=== PATIENT | female | born 1940 | race Caucasian/White ===

== ENCOUNTER → 2023-09-05 15:58 | Outpatient (REF) | payer MEDICARE, OTHER, SELFPAY | LOC: RAD 15:58 | PROVIDERS: ATTENDING PHYSICIAN Family Medicine | DX: S09.90XA Unspecified injury of head, initial encounter (principal); W19.XXXA Unspecified fall, initial encounter; R42 Dizziness and giddiness; R11.0 Nausea; Z79.01 Long term (current) use of anticoagulants; M54.50 Low back pain, unspecified | CPT/HCPCS: 70450; 72110 ==

== ENCOUNTER → 2023-12-29 08:48 | Outpatient (REF) | payer MEDICARE, OTHER, SELFPAY | LOC: RAD 08:48 | PROVIDERS: ATTENDING PHYSICIAN Obstetrics & Gynecology; FAMILY PHYSICIAN Family Medicine | DX: Z78.0 Asymptomatic menopausal state (principal) | CPT/HCPCS: 77080 ==

== ENCOUNTER → 2024-02-05 13:44 | Outpatient (REF) | payer MEDICARE, OTHER, SELFPAY | LOC: HWRAD 13:44 | PROVIDERS: ATTENDING PHYSICIAN Obstetrics & Gynecology; FAMILY PHYSICIAN Family Medicine | DX: N95.0 Postmenopausal bleeding (principal) | CPT/HCPCS: 76830; 76856 ==

== ENCOUNTER → 2024-10-04 11:02 | Outpatient (REF) | payer MEDICARE, OTHER, SELFPAY ==
[2024-10-04 17:39] LABS: Urine Albumin 1+ (Neg - Trace); Urine Bilirubin 3+ (Negative); Urine Character Clear (Clear); Urine Glucose Negative (Negative); Urine Ketone Negative (Negative); Urine Leukocyte 1+ (Negative); Urine Nitrite Positive (Negative); Urine Occult Blood Negative (Negative); Urine Urobilinogen 4+ (Neg - 1+)
[2024-10-04 17:42] LABS: Urine Color Orange
[2024-10-04 17:48] LABS: Urine Squamous Cell 0-2 /LPF (Few)
[2024-10-04 17:49] LABS: Urine Bacteria Moderate (Negative); Urine Red Blood Cell 0-2 /HPF (0-2)
== END ==
LOC: CLAB 11:02
PROVIDERS: ATTENDING PHYSICIAN Physician Assistant Medical
DX: N30.00 Acute cystitis without hematuria (principal)
CPT/HCPCS: 81003; 81015; 87086

== ENCOUNTER → 2024-10-15 14:10 | Outpatient (REF) | payer MEDICARE, OTHER, SELFPAY | LOC: HWRAD 14:10 | PROVIDERS: ATTENDING PHYSICIAN Family Medicine | DX: M54.50 Low back pain, unspecified (principal) | CPT/HCPCS: 72110 ==

== ENCOUNTER 2024-11-03 07:44 | Emergency (ER) | payer MEDICARE, OTHER, SELFPAY ==
[2024-11-03 07:51] VITALS: BP 174/90
--- NOTE | 2024-11-03 08:14 | EDRN ---
Pt attempting urine spec at this time.
[2024-11-03 08:27] VITALS: BP 165/79
[2024-11-03 08:28] VITALS: BMI 32.0
--- NOTE | 2024-11-03 08:35 | ED.GENMED ---
History of Present Illness
<Jacqueline Jimenez PA-C - Last Filed: 11/03/24 15:07>
General
Chief Complaint: Generalized Pain
Source: patient
Exam Limitations: none
Time Seen by Provider: 11/03/24 08:05
Nursing documentation reviewed up to this point in time: agreed with
History of Present Illness
History of Present Illness:
PT IS A 84 Y/O F with h/o fibromyalgia, PAF on eliquis, neuropathy
rubor legs chroniclaly
here with acute on chronic worsening b/l lowre extermity pain the past 1 week
she also has noticed more significant edema in the legs b/l for about 5 days
she saw pain mangaement an dwas given vicodin which isn't helping
she chornically has rednes in the feet hwich is usually worse as the day goes on but seems to be more red in the morning the past 2 dyas
and she has noticed some blisters forming on her anterior lower
Past History
<Jacqueline Jimenez PA-C - Last Filed: 11/03/24 15:07>
Past History
ED Past Medical History: Arrthythmia (Atrial fibrillation) and Other (Torn rotator cuff)
Social History
Tobacco: Non-smoker
Alcohol: Occasional
Personal:
Living: with family
Family History
Family History: Negative Diabetes, Hypertension or CAD
Course
<Jacqueline Jimenez PA-C - Last Filed: 11/03/24 15:07>
Orders/Labs/Results
Orders:
Orders
11/03/24 08:19
IV Insert/Care/Rem.- Treatment PRN
11/03/24 08:30
Electrocardiogram (*1) Urgent
Reason for Study: Abdominal Pain
CT Abd/Pel (IV only)-DH only Urgent
Comment:
Reason For Exam: lower abd pain, moderate to severe bl LE edema;
EKG- Treatment ONCE
Venous Doppler Lwr Ext Bilat [US Periph Venous LOWER Ext Silviano] Urgent
Comment:
Reason For Exam: b/l LE edema
11/03/24 08:35
Ketorolac [Toradol] 15 mg IV NOW STA
11/03/24 08:40
CPK [Creatine Phosphokinase] Urgent
Complete Blood Count/With Diff Urgent
Comprehensive Metabolic Panel Urgent
Lipase Urgent
NT-proBNP Urgent
Urinalysis Reflex To Culture Urgent
Date Specimen was Collected: 11/03/24
Time Specimen was Collected: 08:20
Urine Microscopic Reflex Cult Urgent
Urine Culture Urgent
GIOVANNI Source: U
Specimen Description:
Date Specimen was Collected: 11/03/24
Time Specimen was Collected: 08:20
11/03/24 08:50
Lactic Acid Urgent
11/03/24 09:39
Morphine Sulfate 2 mg IV NOW STA
Abnormal Lab Results
11/03/24
08:40
RBC 3.44 L 10^6/uL
(4.20-5.40)
Hgb 10.4 L g/dL
(12.0-16.0)
Hct 30.8 L %
(37.0-47.0)
Absolute Lymphs (auto) 1.0 L 10^3/uL
(1.2-3.4)
Lymphocytes % 14.5 L %
(20.5-51.1)
BUN 26 H mg/dl
(7-17)
Creatinine 0.5 L mg/dL
(0.6-1.0)
Alkaline Phosphatase 177 H U/L
(38-126)
Ur Occult Blood Reflex 1+ A
(Negative)
Leukocyte Esterase Rfl 2+ A
(Negative)
Urine RBC 16-20 A /HPF
(0-2)
Urine Bacteria (Reflex) Moderate A
(Negative)
11/03/24 08:40
11/03/24 08:40
Vital Signs
Initial and Last Documented VS:
Initial Vital Signs
Temp Pulse Resp BP Pulse Ox
36.8 C 80 16 174/90 98
11/03/24 07:51 11/03/24 07:51 11/03/24 07:51 11/03/24 07:51 11/03/24 07:51
Last Documented Vital Signs
Temp Pulse Resp BP Pulse Ox
36.8 C 77 22 156/94 95
11/03/24 07:51 11/03/24 12:00 11/03/24 12:00 11/03/24 09:46 11/03/24 11:15
<Belkys Weiss MD - Last Filed: 11/03/24 12:03>
Orders/Labs/Results
Orders:
Orders
11/03/24 08:19
IV Insert/Care/Rem.- Treatment PRN
11/03/24 08:30
Electrocardiogram (*1) Urgent
Reason for Study: Abdominal Pain
CT Abd/Pel (IV only)-DH only Urgent
Comment:
Reason For Exam: lower abd pain, moderate to severe bl LE edema;
EKG- Treatment ONCE
Venous Doppler Lwr Ext Bilat [US Periph Venous LOWER Ext Silviano] Urgent
Comment:
Reason For Exam: b/l LE edema
11/03/24 08:35
Ketorolac [Toradol] 15 mg IV NOW STA
11/03/24 08:40
CPK [Creatine Phosphokinase] Urgent
Complete Blood Count/With Diff Urgent
Comprehensive Metabolic Panel Urgent
Lipase Urgent
NT-proBNP Urgent
Urinalysis Reflex To Culture Urgent
Date Specimen was Collected: 11/03/24
Time Specimen was Collected: 08:20
Urine Microscopic Reflex Cult Urgent
Urine Culture Urgent
GIOVANNI Source: U
Specimen Description:
Date Specimen was Collected: 11/03/24
Time Specimen was Collected: 08:20
11/03/24 08:50
Lactic Acid Urgent
11/03/24 09:39
Morphine Sulfate 2 mg IV NOW STA
Abnormal Lab Results
11/03/24
08:40
RBC 3.44 L 10^6/uL
(4.20-5.40)
Hgb 10.4 L g/dL
(12.0-16.0)
Hct 30.8 L %
(37.0-47.0)
Absolute Lymphs (auto) 1.0 L 10^3/uL
(1.2-3.4)
Lymphocytes % 14.5 L %
(20.5-51.1)
BUN 26 H mg/dl
(7-17)
Creatinine 0.5 L mg/dL
(0.6-1.0)
Alkaline Phosphatase 177 H U/L
(38-126)
Ur Occult Blood Reflex 1+ A
(Negative)
Leukocyte Esterase Rfl 2+ A
(Negative)
Urine RBC 16-20 A /HPF
(0-2)
Urine Bacteria (Reflex) Moderate A
(Negative)
11/03/24 08:40
11/03/24 08:40
Vital Signs
Initial and Last Documented VS:
Initial Vital Signs
Temp Pulse Resp BP Pulse Ox
36.8 C 80 16 174/90 98
11/03/24 07:51 11/03/24 07:51 11/03/24 07:51 11/03/24 07:51 11/03/24 07:51
Last Documented Vital Signs
Temp Pulse Resp BP Pulse Ox
36.8 C 77 22 156/94 95
11/03/24 07:51 11/03/24 12:00 11/03/24 12:00 11/03/24 09:46 11/03/24 11:15
ED Attending Note
<Jacqueline Jimenez PA-C - Last Filed: 11/03/24 15:07>
-
Portions of this chart may have been created with voice recognition software.� Occasional wrong word or��sound alike� substitutions may have occurred due to the inherent limitations of voice recognition software.
<Belkys Weiss MD - Last Filed: 11/03/24 12:03>
ED Attending Note
Patient seen and examined by attending physician: Yes
I performed the substantive portion of visit, reviewed & personally made and approve the management plan that is documented in note by myself or ANDIE.: Yes
ED Attending Note:
I have seen and evaluated the patient with a [id number] encounter. I have spoken to the [PA] and involved in the medical history, the physical exam, medical decision making.
Evaluation and management service: agree unless noted differently below.
Results interpretation: agree unless noted differently below.
Patient is a 84-year-old woman presenting to the emergency department with acute on chronic leg pain. She states that she has been diagnosed with neuropathy and actually has a nerve ablation scheduled for tomorrow. She states that the pain has
been more severe today so she came in. Her primary care doctor did prescribe her Vicodin which has not helped. She is on tramadol. She states that normally helps but did not help today. She was on gabapentin but unfortunately had to stop it
secondary to 2 side effects. She also states that her legs are usually red and swollen. She does state that they could be related to her veins. She denies any fevers chills. No drainage. No numbness tingling. No weakness. She has noticed some
blisters to her lower extremity. She also stated she is having vague abdominal pain as well. No diarrhea. No nausea no vomiting.
GENERAL: in no acute distress
HEENT: normocephalic, extraocular movements intact, moist oral mucosa
NECK: normal inspection
RESPIRATORY: no respiratory distress, clear to auscultation bilaterally
CARDIOVASCULAR: regular rate and rhythm
ABDOMEN/: soft, non-distended, non-tender to palpation, no rebound or guarding
EXTREMITIES: Bilateral lower extremity with edema, left lower extremity with mild erythema to the foot and lower leg which patient states that is at baseline. Small closed blister to the right lower anterior weston. No skin sloughing. No crepitus.
Palpable DP pulses bilaterally, normal cap refill, normal sensation
NEUROLOGIC: awake and alert, moves all extremities
SKIN: warm
Patient is a 84-year-old woman presenting to the emergency department with acute on chronic leg pain. Vitals are notable for being hypertensive and exam does show bilateral lower extremity swelling with mild redness to the left lower extremity. We
did rule out DVT or compressive clot in the abdomen. She does have palpable distal pulses so not consistent with acute limb ischemia. The leg does not appear infected. I did have a lengthy discussion with patient and offered repeating her urine
sample as she was complaining of suprapubic pressure and the initial urine was contaminated. However patient declines as this does not feel like her prior bladder infections. I did offer patient admission for further workup and evaluation but
unfortunately cannot give a magic cure for the burning pain that she is having in her legs. Patient then opted for discharge as she does have a procedure tomorrow that she wants completed. We did discuss with patient's primary care physician who
is in agreement with discharge. Strict return precautions given.
Discharge Plan
Departure
Patient Disposition: Home (Routine Discharge)
Date of Disposition: 11/03/24
Time of Disposition: 11:54
Patient with high blood pressure during this ER visit?: No
Condition: Fair
Discharge Problem:
Chronic pain
Instructions: Chronic Pain (DC)
Prescriptions:
No Action
cholecalciferol (vitamin D3) 1,000 UNITS tablet
1,000 units PO DAILY
Eliquis 5 MG tablet
5 mg PO BID Qty: 30 0RF
Patient Comments:
told to stop 2 days prior
acetaminophen [Tylenol Extra Strength] 500 MG tablet
500 - 1,000 mg PO PRN PRN (Reason: PAIN)
lidocaine [Lidocaine Pain Relief] 4 % Adhesive Patch,Medicated
1 patch TOPICAL HS
cyanocobalamin (vitamin B-12) 1,000 mcg Tablet
1,000 mcg PO DAILY
metoprolol succinate 25 mg Tablet Extended Release 24 Hr
25 mg PO PRN PRN (Reason: PAF)
Rx Instructions:
one/day
losartan 50 mg Tablet
50 mg PO BID
olopatadine [Pataday Twice Daily Relief] 0.1 % Drops
1 drp BOTH EYES DAILY
loteprednol etabonate [Lotemax] 0.5 % Drops,Suspension
1 drp BOTH EYES DAILY
Hydrocortisone Ointment
1 dose topical PRN PRN (Reason: itch)
Traumeel Cream
1 dose topical PRN PRN (Reason: pain)
Estring 2 mg (7.5 mcg /24 hour) Ring
1 vag ring VAGINAL [id number]
Patient Comments:
in place per patient.
albuterol sulfate
1 puff inhalation .PRN Q4H PRN (Reason: SOB)
calcium carbonate 1,250 MG
1,250 mg PO PRN PRN (Reason: antacid)
Thera Tears
BOTH EYES Q6H
lidocaine 3 % Cream
See Rx Instructions .ROUTE .COMPLEX PRN (Reason: pain)
Rx Instructions:
1 applic topically as needed to bilateral feet.
tramadol 50 mg Tablet
50 mg PO Q6HPRN PRN (Reason: moderate to severe pain) Qty: 14 0RF
tramadol 50 mg tablet
50 mg PO Q6HPRN PRN (Reason: severe pain/breakthrough pain) Qty: 14 0RF
Referrals:
Patria Enriquez MD [Family Provider] - Follow up in 2-3 days
Activity Restrictions/Additional Instructions:
YOU CAN FOLLOW UP WITH DR. ENRIQUEZ THIS WEEK, I SPOKE WITH HER ABOUT YOUR TESTING AND WE DID NOT FIND ANY EMERGENCIES
PLEASE CONTINUE YOUR PAIN MEDICATION REGIMEN
RETURN FOR WORSENING SYMPTOMS LIKE FEVER, CHILLS, WORSENING RASH, TROUBLE WALKING
OTHERWISE PLEASE SEE YOUR DOCTOR
Interventions
Interventions:
*Risk Screen - Suicide Last Done: 11/03/24 07:51
*General Assessment Last Done: 11/03/24 08:28
*Neglect/Abuse Screening Last Done: 11/03/24 07:51
*ED- Fall Risk Assessment Last Done: 11/03/24 08:28
*ED COVID-19 Vaccine History Last Done: 11/03/24 08:28
*Nursing Disposition Last Done: 11/03/24 12:15
Discharge Date and Time
Discharge Date/Time: 11/03/24 12:15
Print Language: SAMMARINESE
[2024-11-03 08:51] LABS: Urine Albumin Negative (Neg - Trace); Urine Bilirubin Negative (Negative); Urine Character Clear (Clear); Urine Color Yellow; Urine Glucose Negative (Negative); Urine Ketone Negative (Negative); Urine Leukocyte 2+ (Negative); Urine Nitrite Negative (Negative); Urine Occult Blood 1+ (Negative); Urine Urobilinogen Negative (Neg - 1+); Urine pH 6.5 (5.0-9.0)
[2024-11-03 08:54] LABS: % Basophils 0.3 % (0-2); % Immature Granulocytes 0.4 % (0-0.5); % Lymphocytes 14.5 % (20.5-51.1); % Monocytes 8.8 % (1.7-9.3); Absolute Eosinophils 0.1 10^3/uL (0-0.7); Absolute Monocytes 0.6 10^3/uL (0.1-0.6); Absolute Neutrophils 5.2 10^3/uL (1.4-6.5); Hematocrit 30.8 % (37.0-47.0); Hemoglobin 10.4 g/dL (12.0-16.0); Mean Corp Hgb Conc. 33.8 g/dL (33.0-37.0); Mean Corpuscular Hgb 30.2 pg (27.0-31.0); Mean Corpuscular Volume 89.5 fL (81.0-99.0); Mean Platelet Volume 10.4 fL (7.4-10.4); Nucleated Red Blood Cells % 0 %; Platelet Count 226 10^3/uL (130-400); Red Blood Cell Count 3.44 10^6/uL (4.20-5.40); Red Cell Dist. Width 13.9 % (11.5-14.5); White Blood Cell Count 6.9 10^3/uL (4.8-10.8)
[2024-11-03 09:00] VITALS: BP 160/86
[2024-11-03 09:02] LABS: AST (SGOT) 33 U/L (14-36); Albumin 3.9 g/dl (3.5-5.0); Alkaline Phosphatase 177 U/L (38-126); Blood Urea Nitrogen 26 mg/dl (7-17); Calcium 9.9 mg/dl (8.4-10.2); Carbon Dioxide 26 mmol/L (22-30); Chloride 106 mmol/L (98-107); Creatine Phosphokinase 128 U/L (30-135); Estimated Creatinine Clearance 68 ml/min; Glucose 94 mg/dl (70-99); Lipase 118 U/L (23-300); Potassium 4.2 mmol/L (3.5-5.1); Sodium 138 mmol/L (135-145); Total Bilirubin 0.5 mg/dl (0.2-1.3); Total Protein 6.3 g/dl (6.3-8.2); eGFR > 60.00
[2024-11-03 09:03] LABS: ALT (SGPT) 33 U/L (0-35)
[2024-11-03] MEDS: TORADOL 15 MG IV (09:05)
[2024-11-03 09:10] LABS: Lactic Acid 0.7 mmol/L (0.7-2.0)
[2024-11-03 09:11] LABS: NT-proBNP 559 pg/ml
[2024-11-03] MEDS: MORPHINE SULFATE 2 MG IV (09:44)
[2024-11-03 09:46] VITALS: BP 156/94
[2024-11-03 09:48] LABS: Urine Squamous Cell 26-30 /LPF (Few); Urine Urothelial Cell 0-2 /LPF (FEW)
[2024-11-03 09:49] LABS: Urine Bacteria Moderate (Negative); Urine Red Blood Cell 16-20 /HPF (0-2)
--- NOTE | 2024-11-03 10:58 | EDRN ---
Spouse just came out of pt's room and said to this RN that pt is 'writhing in pain'. pt just returned from US. Honorio PHAM was inrformed and in room to check on pt.
--- NOTE | 2024-11-03 11:04 | EDRN ---
Ru ED PCT in room assisting pt to get up to ambulate to BR at this time.
--- NOTE | 2024-11-03 11:10 | EDRN ---
Pt was in great pain just now and declined a purewyck, used walker and ambulated to BR w/out difficulty.
--- NOTE | 2024-11-03 11:11 | EDRN ---
Dr. Weiss now in room speaking w/ pt at this time.
--- NOTE | 2024-11-03 11:24 | EDRN ---
Pt's spouse just exited pt's room and informed this RN that pt wishes to be discharged home as she has an ablation scheduled tomorrow w/ her pain specialist.
--- NOTE | 2024-11-03 11:25 | EDRN ---
This RN TT'd Honorio Jimenez w/ what spouse said to this RN.
--- NOTE | 2024-11-03 11:49 | EDRN ---
Honorio PHAM in room w/ pt at this time.
== END 2024-11-03 12:15 | disposition home or self-care (01) ==
LOC: EMR 07:44
PROVIDERS: Physician Assistant; EMERGENCY PHYSICIAN Student in an Organized Health Care Education/Training Program; FAMILY PHYSICIAN Family Medicine
DX: M79.605 Pain in left leg (principal); M79.604 Pain in right leg; R60.0 Localized edema; R10.30 Lower abdominal pain, unspecified; L53.9 Erythematous condition, unspecified; M79.7 Fibromyalgia; I48.0 Paroxysmal atrial fibrillation; G89.29 Other chronic pain; G62.9 Polyneuropathy, unspecified; R73.03 Prediabetes; K21.9 Gastro-esophageal reflux disease without esophagitis; K44.9 Diaphragmatic hernia without obstruction or gangrene; M19.90 Unspecified osteoarthritis, unspecified site; Z79.01 Long term (current) use of anticoagulants; Z85.828 Personal history of other malignant neoplasm of skin; Z87.891 Personal history of nicotine dependence; Z88.1 Allergy status to other antibiotic agents; Z88.8 Allergy status to other drugs, medicaments and biological substances
CPT/HCPCS: 99284; 96375; 96374; 74177; 80053; 81003; 81015; 82550; 83605; 83690; 83880; 85025; 87086; 93005; 93970; Q9967

== ENCOUNTER 2024-11-21 13:19 | Inpatient (IN) | payer MEDICARE, OTHER, SELFPAY ==
[2024-11-20 15:10] VITALS: BMI 32.1
[2024-11-20 15:12] VITALS: BP 169/67
--- NOTE | 2024-11-20 16:03 | ED.SKININJ ---
HPI-Injury
<Maria E Mccloud NP - Last Filed: 11/20/24 20:38>
General
Chief Complaint: Skin Problem
Source: patient
Exam Limitations: none
Time Seen by Provider: 11/20/24 15:50
Nursing documentation reviewed up to this point in time: agreed with
History of Present Illness-Injury
Is this injury a work related problem?: No
Is pt an associate of [facility]/[place]?: No
Initial Injury comments:
Patient to ED wt complaint of pain redness swelling and drainage BLE. Keri states feet are typically red but the erythema swelling and weeping of legs is new. She was evaluated by PCP and then sent to ED. Denies fever/chills. Denies
SOB,CP/pressure.
Past History
<Maria E Mccloud NP - Last Filed: 11/20/24 20:38>
Past History
ED Past Medical History: Arrthythmia (Atrial fibrillation) and Other (Torn rotator cuff)
Social History
Tobacco: Non-smoker
Alcohol: Occasional
Personal:
Living: with family
Family History
Family History: Negative Diabetes, Hypertension or CAD
Review of Systems
<Maria E Mccloud NP - Last Filed: 11/20/24 20:38>
Review of Systems
Allergies reviewed?: Yes
All Other Systems: ROS reviewed and negative except as documented in HPI and ROS
Constitutional: Reports no symptoms
EENT: Reports no symptoms
Respiratory: Reports no symptoms
Cardiac: Reports no symptoms
ABD/GI: Reports no symptoms
: Reports no symptoms
Musculoskeletal: Reports other (BLE pain knees to toes)
Skin: Reports other (BLE erythema, swelling and pain from knee to toes)
Neurological: Reports no symptoms
Psychiatric: Reports no symptoms
Phy Exam
<Maria E Mccloud ACADEMIC SUPPORT DIRECTOR - Last Filed: 11/20/24 20:38>
General Physical Exam
General Presentation: moderate distress
General age: appears stated age
General Skin: warm
General Habitus: normal
General Mental: alert
Cardiovascular Exam
Cardiovascular Exam: regular rate/rhythm
Pulmonary Exam
Pulmonary Exam: lungs clear and no respiratory distress
Gastrointestinal Exam
Gastrointestinal Exam: normal bowel sounds, non tender and soft
Musculoskeletal Exam
Musculoskeletal Exam: neuro vasc intact and other (BLE swelling, erythema, pain)
Skin Exam
Skin Exam: other (erythema and swelling BLE knees to ties. Both legs draining clear fluid)
Psychiatric Exam
Psychiatric Exam: normal mood/affect
Course
<Maria E Mccloud ACADEMIC SUPPORT DIRECTOR - Last Filed: 11/20/24 20:38>
Orders/Labs/Results
Orders:
Orders
11/20/24 16:01
US Periph Venous LOWER Ext Silviano Urgent
Comment:
Reason For Exam: erythema, swelling
11/20/24 16:05
HYDROmorphone [Dilaudid] 0.25 mg IV NOW STA
Ondansetron Injectable [Zofran] 4 mg IV NOW STA
11/20/24 16:22
Complete Blood Count/With Diff Urgent
Comprehensive Metabolic Panel Urgent
NT-proBNP Urgent
11/20/24 16:38
Lactic Acid Urgent
Blood Culture Urgent
GIOVANNI Source: Blood/Venous
Specimen Description:
11/20/24 18:58
Furosemide [Lasix] 40 mg IV NOW STA
11/20/24 19:04
HYDROmorphone [Dilaudid] 0.25 mg .ROUTE .STK-MED ONE
11/20/24 19:10
HYDROmorphone [Dilaudid] 0.25 mg IV NOW STA
11/20/24 19:42
Vancomycin [Vancocin] 2,000 mg 0.9% Sodium Chloride 500 ml [Nss] 500 ml IV NOW
11/20/24 20:12
HYDROmorphone [Dilaudid] 0.25 mg IV NOW STA
11/20/24 20:16
Admit/Transfer Patient As Directed
Co-Sign Provider:
Level of Care: Observation services
Assign to:: Medical/Surgical
Physician / Group: Leanne Montemayor
Diagnosis: cellulitis vs. overload vs. lymphedema
PRN Pain Medication Management As Directed
May give lesser potent ordered pain med per pt: Yes
preference::
Protocol:: Medication orders for pain may be administered in a
manner that supports deferring to patient preference
when the pt is:
- Requesting an ordered lesser potent pain medication.
Least to most potent pain medications are defined
as: acetaminophen < NSAID < tramadol < opioids
(morphine, oxycodone, hydromorphone).
- Requesting a lesser dose of the same medication IF
ORDERED.
- Requesting a less intrusive route of administration
if both routes are prescribed by the provider (PO <
IV).
11/20/24 20:17
Code Status As Directed
Resuscitation Status: Full Code
Abnormal Lab Results
11/20/24 11/20/24
16:22 16:38
RBC 3.77 L 10^6/uL
(4.20-5.40)
Hgb 11.3 L g/dL
(12.0-16.0)
Hct 33.2 L %
(37.0-47.0)
MPV 10.5 H fL
(7.4-10.4)
Absolute Lymphs (auto) 0.8 L 10^3/uL
(1.2-3.4)
Neutrophils % 79.1 H %
(42.2-75.2)
Lymphocytes % 12.6 L %
(20.5-51.1)
BUN 35 H mg/dl
(7-17)
Creatinine 0.5 L mg/dL
(0.6-1.0)
Lactic Acid 0.6 L mmol/L
(0.7-2.0)
Alkaline Phosphatase 148 H U/L
(38-126)
11/20/24 16:22
11/20/24 16:22
Vital Signs
Initial and Last Documented VS:
Initial Vital Signs
Temp Pulse Resp BP Pulse Ox
98.2 F 86 20 169/67 95
11/20/24 15:12 11/20/24 15:12 11/20/24 15:12 11/20/24 15:12 11/20/24 15:12
Last Documented Vital Signs
Temp Pulse Resp BP Pulse Ox
98.2 F 79 13 165/113 98
11/20/24 15:12 11/20/24 19:11 11/20/24 18:00 11/20/24 19:11 11/20/24 18:00
<Giovanni Allen, DO - Last Filed: 11/20/24 18:50>
Orders/Labs/Results
Orders:
Orders
11/20/24 16:01
US Periph Venous LOWER Ext Silviano Urgent
Comment:
Reason For Exam: erythema, swelling
11/20/24 16:05
HYDROmorphone [Dilaudid] 0.25 mg IV NOW STA
Ondansetron Injectable [Zofran] 4 mg IV NOW STA
11/20/24 16:22
Complete Blood Count/With Diff Urgent
Comprehensive Metabolic Panel Urgent
NT-proBNP Urgent
11/20/24 16:38
Lactic Acid Urgent
Blood Culture Urgent
GIOVANNI Source: Blood/Venous
Specimen Description:
11/20/24 18:58
Furosemide [Lasix] 40 mg IV NOW STA
11/20/24 19:04
HYDROmorphone [Dilaudid] 0.25 mg .ROUTE .STK-MED ONE
11/20/24 19:10
HYDROmorphone [Dilaudid] 0.25 mg IV NOW STA
11/20/24 19:42
Vancomycin [Vancocin] 2,000 mg 0.9% Sodium Chloride 500 ml [Nss] 500 ml IV NOW
11/20/24 20:12
HYDROmorphone [Dilaudid] 0.25 mg IV NOW STA
11/20/24 20:16
Admit/Transfer Patient As Directed
Co-Sign Provider:
Level of Care: Observation services
Assign to:: Medical/Surgical
Physician / Group: Leanne Montemayor
Diagnosis: cellulitis vs. overload vs. lymphedema
PRN Pain Medication Management As Directed
May give lesser potent ordered pain med per pt: Yes
preference::
Protocol:: Medication orders for pain may be administered in a
manner that supports deferring to patient preference
when the pt is:
- Requesting an ordered lesser potent pain medication.
Least to most potent pain medications are defined
as: acetaminophen < NSAID < tramadol < opioids
(morphine, oxycodone, hydromorphone).
- Requesting a lesser dose of the same medication IF
ORDERED.
- Requesting a less intrusive route of administration
if both routes are prescribed by the provider (PO <
IV).
11/20/24 20:17
Code Status As Directed
Resuscitation Status: Full Code
Abnormal Lab Results
11/20/24 11/20/24
16:22 16:38
RBC 3.77 L 10^6/uL
(4.20-5.40)
Hgb 11.3 L g/dL
(12.0-16.0)
Hct 33.2 L %
(37.0-47.0)
MPV 10.5 H fL
(7.4-10.4)
Absolute Lymphs (auto) 0.8 L 10^3/uL
(1.2-3.4)
Neutrophils % 79.1 H %
(42.2-75.2)
Lymphocytes % 12.6 L %
(20.5-51.1)
BUN 35 H mg/dl
(7-17)
Creatinine 0.5 L mg/dL
(0.6-1.0)
Lactic Acid 0.6 L mmol/L
(0.7-2.0)
Alkaline Phosphatase 148 H U/L
(38-126)
11/20/24 16:22
11/20/24 16:22
Vital Signs
Initial and Last Documented VS:
Initial Vital Signs
Temp Pulse Resp BP Pulse Ox
98.2 F 86 20 169/67 95
11/20/24 15:12 11/20/24 15:12 11/20/24 15:12 11/20/24 15:12 11/20/24 15:12
Last Documented Vital Signs
Temp Pulse Resp BP Pulse Ox
98.2 F 79 13 165/113 98
11/20/24 15:12 11/20/24 19:11 11/20/24 18:00 11/20/24 19:11 11/20/24 18:00
<Maria E Mccloud NP - Last Filed: 11/20/24 20:38>
*Radiology
Radiology exam reviewed: radiology read reviewed
*Pulse Oximetry
Patient hypoxic: no
*Critical Care Note
Total Time (30-74mins, 75-104mins- exclusive of procedures): Not Applicable
<Maria E Mccloud ACADEMIC SUPPORT DIRECTOR - Last Filed: 11/20/24 20:38>
Update Note
Update Note:
patient to ED with complaint of BLE swelling, redness, pain. Bilateral legs are now weeping. SHe was seen today by PCP and sent to ED. Difficulty ambulating due to pain and swelling. SHe remains afebrile. Labs reviewed. WBC and lactic both
normal. BNP normal. US neg for DVT. Case discussed with Dr. Allen who also evaluated this patient. Will need to admit due to level of pain and inablilty to safely ambulate. Cellulitis vs volume overload. Given dose of lasix and Vancomycin in
ED. WIll admit to hospitalist service.
ED Attending Note
<Maria E Mccloud NP - Last Filed: 11/20/24 20:38>
-
Portions of this chart may have been created with voice recognition software.� Occasional wrong word or��sound alike� substitutions may have occurred due to the inherent limitations of voice recognition software.
<Giovanni Allen, - Last Filed: 11/20/24 18:50>
ED Attending Note
Patient seen and examined by attending physician: Yes
I performed the substantive portion of visit, reviewed & personally made and approve the management plan that is documented in note by myself or ANDIE.: Yes
ED Attending Note:
84-year-old female presents with lower extremity swelling despite outpatient diuresis. Now unable to walk due to severe pain. She is quite red left greater than right up to her knees with blistering noted to the right lower extremity. Question
cellulitis versus just related to lower extremity edema. For now cover with Ancef and admit. Continue diuresis
Discharge Plan
Departure
Patient Disposition: Admit
Date of Disposition: 11/20/24
Time of Disposition: 19:02
Presentation/result/management discussed w/ accepting MD/DO: Hospitalist
Patient with high blood pressure during this ER visit?: No
Condition: Fair
Covid-19: Not Applicable
Discharge Problem:
Bilateral cellulitis of lower leg, Leg edema
Prescriptions:
No Action
cholecalciferol (vitamin D3) 1,000 UNITS tablet
1,000 units PO DAILY
Eliquis 5 MG tablet
5 mg PO BID Qty: 30 0RF
Patient Comments:
told to stop 2 days prior
acetaminophen [Tylenol Extra Strength] 500 MG tablet
500 - 1,000 mg PO PRN PRN (Reason: PAIN)
lidocaine [Lidocaine Pain Relief] 4 % Adhesive Patch,Medicated
1 patch TOPICAL HS
cyanocobalamin (vitamin B-12) 1,000 mcg Tablet
1,000 mcg PO DAILY
metoprolol succinate 25 mg Tablet Extended Release 24 Hr
25 mg PO PRN PRN (Reason: PAF)
Rx Instructions:
one/day
losartan 50 mg Tablet
50 mg PO BID
olopatadine [Pataday Twice Daily Relief] 0.1 % Drops
1 drp BOTH EYES DAILY
loteprednol etabonate [Lotemax] 0.5 % Drops,Suspension
1 drp BOTH EYES DAILY
Hydrocortisone Ointment
1 dose topical PRN PRN (Reason: itch)
Traumeel Cream
1 dose topical PRN PRN (Reason: pain)
Estring 2 mg (7.5 mcg /24 hour) Ring
1 vag ring VAGINAL [id number]
Patient Comments:
in place per patient.
albuterol sulfate
1 puff inhalation .PRN Q4H PRN (Reason: SOB)
calcium carbonate 1,250 MG
1,000 mg PO PRN PRN (Reason: antacid)
Thera Tears
BOTH EYES Q6H
lidocaine 3 % Cream
See Rx Instructions .ROUTE .COMPLEX PRN (Reason: pain)
Rx Instructions:
1 applic topically as needed to bilateral feet.
tramadol 50 mg Tablet
50 mg PO Q6HPRN PRN (Reason: moderate to severe pain) Qty: 14 0RF
tramadol 50 mg tablet
50 mg PO Q6HPRN PRN (Reason: severe pain/breakthrough pain) Qty: 14 0RF
Referrals:
Patria Huynh MD [Family Provider] -
Interventions
Interventions:
*Risk Screen - Suicide Last Done: 11/20/24 16:41
*General Assessment Last Done: 11/20/24 15:12
*Neglect/Abuse Screening Last Done: 11/20/24 16:38
*ED COVID-19 Vaccine History Last Done: 11/20/24 16:38
Discharge Date and Time
Print Language: FAROESE
[2024-11-20 16:33] LABS: % Basophils 0.2 % (0-2); % Eosinophils 0.6 % (0-6); % Immature Granulocytes 0.3 % (0-0.5); % Lymphocytes 12.6 % (20.5-51.1); % Monocytes 7.2 % (1.7-9.3); % Neutrophils 79.1 % (42.2-75.2); Absolute Lymphocytes 0.8 10^3/uL (1.2-3.4); Absolute Monocytes 0.5 10^3/uL (0.1-0.6); Hematocrit 33.2 % (37.0-47.0); Hemoglobin 11.3 g/dL (12.0-16.0); Mean Corpuscular Volume 88.1 fL (81.0-99.0); Mean Platelet Volume 10.5 fL (7.4-10.4); Nucleated Red Blood Cells % 0 %; Platelet Count 199 10^3/uL (130-400); Red Blood Cell Count 3.77 10^6/uL (4.20-5.40); Red Cell Dist. Width 14.2 % (11.5-14.5); White Blood Cell Count 6.4 10^3/uL (4.8-10.8)
[2024-11-20] MEDS: ZOFRAN 4 MG IV (16:33)
[2024-11-20] MEDS: DILAUDID 0.25 MG IV ×3 (16:34→20:13)
[2024-11-20 16:57] LABS: ALT (SGPT) 29 U/L (0-35); AST (SGOT) 31 U/L (14-36); Albumin 4.4 g/dl (3.5-5.0); Alkaline Phosphatase 148 U/L (38-126); Blood Urea Nitrogen 35 mg/dl (7-17); Calcium 9.8 mg/dl (8.4-10.2); Carbon Dioxide 26 mmol/L (22-30); Chloride 106 mmol/L (98-107); Glucose 91 mg/dl (70-99); Potassium 4.4 mmol/L (3.5-5.1); Sodium 139 mmol/L (135-145); Total Bilirubin 0.5 mg/dl (0.2-1.3); eGFR > 60.00
[2024-11-20 16:58] LABS: NT-proBNP 448 pg/ml
[2024-11-20 17:00] VITALS: BP 174/125
[2024-11-20 17:05] LABS: Lactic Acid 0.6 mmol/L (0.7-2.0)
[2024-11-20 18:00] VITALS: BP 176/107
[2024-11-20 19:00] VITALS: BP 165/113
[2024-11-20] MEDS: LASIX 40 MG IV (19:11)
--- NOTE | 2024-11-20 19:25 | HPS.HSE ---
Family Physician
-
Family Physician: Patria Huynh
Chief Complaint
-
bilateral lower extremity edema
History of Present Illness
Patient is a 84-year-old female with past medical history significant for benign hypertension, paroxysmal atrial fibrillation, GERD, fibromyalgia, peripheral polyneuropathy, anemia, anxiety and Hx basal cell carcinoma who presented to [facility] ED for
evaluation at recommendation of primary for bilateral lower extremity edema. Patient reports associated pain in bilateral lower extremities from waste down, described as tingling consistent pain. Patient reports some mild nausea this morning. She
denies any fevers, chills, cough, shortness of breath, chest pain, vomiting, constipation, diarrhea or urinary symptoms.
Medical History
Past Medical History
Past Medical History: Reports Other
Additional Past Medical History:
benign hypertension
paroxysmal atrial fibrillation
GERD
fibromyalgia
peripheral polyneuropathy
anemia
anxiety
Hx basal cell carcinoma
Past Surgical History: Reports Other
Additional Past Surgical History:
Tonsillectomy and adenoidectomy (1946) 09/29/2009
Basal cell MOHS surgery 11/19/2015
Left femur 11/19/2015
Right shoulder rotator cuff repair 11/19/2015
Bilateral Cataract surgery 03/2017
insertion of Linq monitor 12/2017
DCR-R eye 10/2003
excision of squamous cell right arm
open left inguinal hernia repair w mesh ([facility]) 09/23/2022
Hospitalization History fx of L hip ORIF() 10/02/2014
Social History
Tobacco: Former Smoker
Alcohol: None
Drug: None
Personal:
Living: With Family
Employment: Retired
Family History
Family History: Not pertinent
Allergies / Home Medications
Allergies reflects when Allergies were last updated in [facility].
Home Medications with original date entered in [facility]
Allergy/Medication List:
Allergies
Allergy/AdvReac Type Severity Reaction Status Date / Time
ampicillin Allergy Anaphylaxis Verified 11/20/24 15:12
cephalexin monohydrate Allergy Rash Verified 11/20/24 15:12
[From Keflex]
doxycycline Allergy Rash Verified 11/20/24 15:12
metronidazole [From Flagyl] Allergy Rash Verified 11/20/24 15:12
thimerosal Allergy Swelling Verified 11/20/24 15:12
tobramycin Allergy Swelling Verified 11/20/24 15:12
trimethoprim Allergy Swelling, Verified 11/20/24 15:12
Red eyes
dexlansoprazole AdvReac copious Verified 11/20/24 15:12
[From Dexilant] diarrhea
'a preservative' Allergy Unknown Uncoded 11/20/24 15:12
Home Medications
cholecalciferol (vitamin D3) 25 mcg (1,000 unit) tablet 1,000 units PO DAILY 09/21/14
apixaban 5 mg tablet (Eliquis) 5 mg PO BID #30 tabs 11/18/15
Hydrocortisone Ointment 1 dose topical PRN PRN itch 09/21/22
Traumeel Cream 1 dose topical PRN PRN pain 09/21/22
acetaminophen 500 mg tablet (Tylenol Extra Strength) 500 - 1,000 mg PO PRN PRN PAIN 09/21/22
albuterol sulfate 1 puff inhalation .PRN Q4H PRN SOB 09/21/22
calcium carbonate 1,000 mg PO PRN PRN antacid 09/21/22
cyanocobalamin (vitamin B-12) 1,000 mcg tablet 1,000 mcg PO DAILY 09/21/22
estradiol 2 mg (7.5 mcg/24 hour) vaginal ring (Estring) 1 vag ring vaginal [id number] 09/21/22
lidocaine 4 % topical patch (Lidocaine Pain Relief) 1 patch topical HS 09/21/22
losartan 50 mg tablet 50 mg PO BID 09/21/22
loteprednol etabonate 0.5 % eye drops,suspension (Lotemax) 1 drp BOTH EYES DAILY 09/21/22
metoprolol succinate 25 mg tablet,extended release 24 hr 25 mg PO PRN PRN PAF 09/21/22
olopatadine 0.1 % eye drops (Pataday Twice Daily Relief) 1 drp BOTH EYES DAILY 09/21/22
Thera Tears BOTH EYES Q6H 09/23/22
lidocaine 3 % topical cream See Rx Instructions .Route .COMPLEX PRN pain 09/23/22
tramadol 50 mg tablet 50 mg PO Q6HPRN PRN moderate to severe pain #14 tabs 09/23/22
Review of Systems
-
History Source: Patient
Constitutional: Reports Sleep Disturbance
EENT: Reports No Symptoms
Respiratory: Reports No Symptoms
Cardiac: Reports No Symptoms
Abdomen/GI: Reports Nausea
: Reports No Symptoms
Musculoskeletal: Reports Edema (bilateral lower extremity L>R)
Skin: Reports Other (BLLE erythema, edema with blistering and weeping )
Neurological: Reports No Symptoms
Endocrine: Reports No Symptoms
Hematologic/Lymphatic: Reports No Symptoms
Psych: Reports No Symptoms
Physical Exam
Vital Signs
Vital Signs
Temp Pulse Resp BP Pulse Ox
98.2 F 79 13 165/113 98
11/20/24 15:12 11/20/24 19:11 11/20/24 18:00 11/20/24 19:11 11/20/24 18:00
Physical Exam
General: Well Developed, Well Nourished, No Apparent Distress, Conversant and Obese
HEENT: NormoCephalic, Moist mucous membranes, Atraumatic, [place] Conjunctivae, Nose Appears Normal and Ears Appear Normal
Respiratory: Clear
Cardiac: S1/S2 and Regular Rhythm
Breast: Deferred by me
GI: Soft, Non Tender, Non Distended and Normal Bowel Sounds
Rectal: Deferred by Provider
Genito-urinary: Deferred by me
Musculoskeletal: No Clubbing, No Cyanosis and No Edema
Skin: Warm, IV/Catheter Site and Other (bilateral lower extremity erythema, edema with blistering and weeping L>R)
Neuro: Awake, Alert, AO x 3 and Nonfocal/grossly intact
Psych: Calm and Intact Judgment/Insight
Laboratory Results
-
11/20/24 16:22
11/20/24 16:22
Laboratory Results
Lactic Acid 0.6 mmol/L (0.7-2.0) L 11/20/24 16:38
Total Bilirubin 0.5 mg/dl (0.2-1.3) 11/20/24 16:22
AST 31 U/L (14-36) 11/20/24 16:22
ALT 29 U/L (0-35) 11/20/24 16:22
Alkaline Phosphatase 148 U/L (38-126) H 11/20/24 16:22
Data Reviewed
-
Ultrasound: Report Reviewed by me (BLLE: No evidence of right or left lower extremity deep venous thrombosis)
Lab Data: Labs Reviewed by me (hgb 11.3, hct 33.2, BUN 35, Creat 0.5, BNP 448)
Impression/Plan
-
IMPRESSION/PLAN:
#bilateral lower extremity erythema, edema with blistering and weeping
#fluid overload vs. cellulitis vs. lymphedema
WBC 6.2
BLLE US: No evidence of right or left lower extremity deep venous thrombosis
- Admit to med/surg
- IV Lasix
- IV Vanco
- Consult ID
#benign hypertension
- continue losartan
#paroxysmal atrial fibrillation
- continue Eliquis and metoprolol
#fibromyalgia
#peripheral polyneuropathy
- continue lidocaine patch and tramadol
- start Lyrica 25mg daily
#anemia
hgb 11.3, hct 33.2
- stable
- monitor H/H
#GERD
#anxiety
#Hx basal cell carcinoma
Code status: full code
DVT prophylaxis: Eliquis
[2024-11-20 20:00] VITALS: BP 182/75
[2024-11-20] MEDS: VANCOCIN 540 MG IV (20:18)
--- NOTE | 2024-11-20 20:25 | W.PN.UPDATE ---
Update Note
Progress Note Update
Patient seen in conjunction with JULIANNE. I agree the findings and physical. I concur with assessment plan listed otherwise.
Briefly, is an 84-year-old with past medical history of proximal atrial fibrillation on Eliquis, hypertension, fibromyalgia, GERD who presents to the emergency department with bilateral swelling of the lower extremities. She reports that the
swelling began about 4 days ago and is associated with the redness of the feet as well as patchy redness in the right lower extremity. There is significant weeping. She reports tenderness and pain. The pain seems to be descending from the hip all
the way down to the legs. She is not aware of any weight gain. She denies dyspnea on exertion but mobility is limited by pain. She denies any orthopnea or PND. She denies any prior history of blood clots, lymphedema or congestive heart disease.
She has not had any fevers or chills. She was given Lasix 20 mg p.o. by physician which she states there was no improvement.
In the emergency department she was hypertensive to 165/113 pulse was 79 and she was satting 100% on room air. CBC was unremarkable. Electrolyte BUN/creatinine were all normal. She had a ultrasound of the left lower extremity which was negative
for DVT.
Assessment and plan
Bilateral lower extremity swelling although less likely to be cellulitis given the distribution it is the most likely scenario given acute onset and no other symptoms of congestive heart disease. He is anticoagulated on Eliquis and DVT studies
negative. No history of lymphedema. No history of congestive heart failure.
- Will admit to [facility]
- Antibiotics allergies, will have to give vancomycin for now, if required may be transitioned over to linezolid
- ID consultation
- Blood culture if fever
- Pain control with low-dose tramadol and trial of Lyrica for known neuropathy
Leg swelling -from cellulitis versus CHF or lymphedema. Possibly hypertensive heart disease.
- CHF workup with echo, BNP is normal but patient will be sent
- Lasix 40 mg IV every 12, monitor weight loss and creatinine
- Keep legs elevated
-Continue losartan
- CARDIOLOGY CONSULT PENDING ECHO
A-fib -rate controlled
-Continue Eliquis
-Continue metoprolol
DVT prophylaxis�on Eliquis
CODE STATUS�full code
--- NOTE | 2024-11-20 21:15 | PTCARENOTE ---
Pt received from ED via stretcher at 2100. Pt AAOx3, VSS, and able to ambulate into room with walker and assistance. Pt complains of 7/10 burning pain in lower legs at this time - see SEP. Pt receptive to room and call rodas. Pt bed in lowest
position and call rodas within reach. Pt educated on importance of call rodas usage, pt relays understanding and cooperation. Will continue with current plan of care.
--- NOTE | 2024-11-20 21:28 | PHA.VAN.IN ---
Assessment
- Assessment
Renal Function: Appears similar to baseline
Concomitant Antimicrobials: NONE
- Previous Dosing Experience
Previous Regimen: SINGLE DOSE ONLY
AUC Dosing Plan
- Dosing Variables
Dosing Weight (kg): 82.3
Dosing CrCl (ml/min): 71
Vd coefficient (L/kg): 0.6
- Empiric Dosing
Initial / Loading Dose: 2GM
Maintenance Regimen: 750MG IV Q12H
Estimated AUC (mcg*h/mL): 495
Estimated Peak (mcg*h/mL): 28.5
Estimated Trough (mcg/ml): 14.2
Estimated Half Life (H): 10.9
Pharmacokinetics Vancomycin I
- -
Patient Age: 84
Patient Sex: Female
Vancomycin Day #: 1
Indication: Skin And Soft Tissue (BLE CELLULITIS)
Requesting Provider: AGUILAR
Pertinent Antimicrobial Allergies:
Allergies
ampicillin Allergy (Verified 11/20/24 15:12)
Anaphylaxis
cephalexin monohydrate [From Keflex] Allergy (Verified 11/20/24 15:12)
Rash
doxycycline Allergy (Verified 11/20/24 15:12)
Rash
metronidazole [From Flagyl] Allergy (Verified 11/20/24 15:12)
Rash
headache
tobramycin Allergy (Verified 11/20/24 15:12)
Swelling
trimethoprim Allergy (Verified 11/20/24 15:12)
Swelling, Red eyes
Height / Weight:
Height 5 ft 3 in
Actual Weight 82.3 kg
Pertinent Past Medical History: BASAL CELL CARCINOMA
- Vital Signs / Lab Results
Temp Pulse Resp BP Pulse Ox
98.2 F 82 14 182/75 96
11/20/24 15:12 11/20/24 20:45 11/20/24 20:45 11/20/24 20:00 11/20/24 20:45
Lab Results - Hematology
11/20/24
16:22
WBC 6.4
Lab Results - Chemistry
11/20/24
16:22
BUN 35 H
Creatinine 0.5 L
Albumin 4.4
11/20/24
16:38
Lactic Acid 0.6 L
[2024-11-20 21:46] VITALS: BP 171/81; BMI 31.0
[2024-11-20 22:06] VITALS: BMI 31.0
[2024-11-20] MEDS: TYLENOL 650 MG PO (22:11)
[2024-11-20] MEDS: ULTRAM 50 MG PO (22:48)
[2024-11-21] MEDS: MOTRIN 200 MG PO (00:01)
[2024-11-21] MEDS: LYRICA 25 MG PO ×3 (01:32→19:29)
[2024-11-21 03:12] VITALS: BP 154/67
[2024-11-21 06:00] VITALS: BMI 31.0
[2024-11-21] MEDS: VANCOCIN 150 IV (06:01)
[2024-11-21] MEDS: ULTRAM 50 MG PO ×2 (06:22→22:33)
--- NOTE | 2024-11-21 07:16 | W.PN.HOSP.TC ---
Today's Communication/Plan
-
see s/p
Assessment / Plan
Assessment / Plan
Physical Exam
General: No acute distress, appears comfortable at this time
HEENT: NormoCephalic, Moist mucous membranes, Atraumatic
Respiratory: Clear to auscultation b/l
Cardiac: S1/S2 and Regular Rhythm
GI: Soft, Non Tender, Non Distended and Normal Bowel Sounds
Musculoskeletal: No Clubbing, No Cyanosis and No Edema
Skin: Warm, bilateral lower extremity erythema, edema with blistering and weeping L>R
Neuro: AOx3 conversant coherent
Psych: Calm and Intact Judgment/Insight
84F HTN pafib GERD fibromyalgia peripheral polyneuropathy anemia anxiety hx basal cell carcinoma referred by primary for evaluation bilateral lower extremity edema. Patient reports associated pain in bilateral lower extremities from waste down,
described as tingling consistent pain.
#bilateral lower extremity erythema, edema with blistering and weeping
#cellulitis vs. lymphedema
BLLE US: No evidence of right or left lower extremity deep venous thrombosis
cont Lasix
empiric Vanco
Consult ID
#benign hypertension
- continue losartan
#paroxysmal atrial fibrillation
- continue Eliquis and metoprolol
#fibromyalgia
#peripheral polyneuropathy
- continue lidocaine patch, prn Tylenol tramadol Dilaudid
- started Lyrica 25mg BID, cont
#anemia
hgb 11.3, hct 33.2
- stable
- monitor H/H
#GERD
#anxiety
#Hx basal cell carcinoma
PT/OT
Code status: full code
DVT prophylaxis: Eliquis
Discussed with patient and patient's Benjamin
I spent a total of 50 minutes with the patient or on the floor. More than 50% of this time involved counseling and coordination of care.
Anticipated Discharge: 24 - 48 hours
Subjective/Interval History
-
Date of Service: November 21, 2024
No acute distress sitting up comfortably in bed. Lower ext pain swelling b/l. Benjamin present during evaluation.
Objective Data
-
Labs:
Laboratory Results
11/21/24
06:28
WBC Pending
Hgb Pending
Hct Pending
Plt Count Pending
Sodium Pending
Potassium Pending
Chloride Pending
Carbon Dioxide Pending
BUN Pending
Creatinine Pending
Glucose Pending
Calcium Pending
Vital Signs:
Vital Signs
Temp Pulse Resp BP Pulse Ox
97.1 F 84 20 154/67 98
11/20/24 21:46 11/20/24 21:46 11/20/24 21:46 11/21/24 03:12 11/20/24 21:46
I&O
11/20/24 11/21/24 11/22/24
06:59 06:59 06:59
Intake Total 690 / 690
Output Total 800 / 800
Balance -110 / -110
[2024-11-21 07:25] VITALS: BP 141/57
[2024-11-21 08:02] LABS: Hematocrit 31.1 % (37.0-47.0); Hemoglobin 10.5 g/dL (12.0-16.0); Mean Corp Hgb Conc. 33.8 g/dL (33.0-37.0); Mean Corpuscular Hgb 29.9 pg (27.0-31.0); Mean Corpuscular Volume 88.6 fL (81.0-99.0); Mean Platelet Volume 11.3 fL (7.4-10.4); Platelet Count 201 10^3/uL (130-400); Red Blood Cell Count 3.51 10^6/uL (4.20-5.40); White Blood Cell Count 5.4 10^3/uL (4.8-10.8)
[2024-11-21] MEDS: ZADITOR 1 DROP BOTH EYES (08:24)
[2024-11-21] MEDS: VITAMIN D3 (cholecalciferol) 25 MCG PO (08:24)
[2024-11-21] MEDS: ELIQUIS 5 MG PO ×2 (08:24→19:29)
[2024-11-21] MEDS: VITAMIN B-12 1000 MCG PO (08:24)
[2024-11-21 08:33] LABS: Blood Urea Nitrogen 26 mg/dl (7-17); Calcium 9.6 mg/dl (8.4-10.2); Carbon Dioxide 29 mmol/L (22-30); Chloride 105 mmol/L (98-107); Estimated Creatinine Clearance 67 ml/min; Glucose 89 mg/dl (70-99); Potassium 3.7 mmol/L (3.5-5.1); Sodium 138 mmol/L (135-145); eGFR > 60.00
--- NOTE | 2024-11-21 08:49 | PHA.VAN.FU ---
Vancomycin Assessment / Plan
- Assessment
Renal Function: Stable
WBC's are: WNL
In the past 24 hrs, patient has been: Afebrile
- Dosing Plan
Continue: Vanc 750mg Q12H
- Monitoring Plan
No level(s) ordered at this time: consider levels in next few days
- Follow Up
Pharmacy will continue to follow.
Vancomycin Follow UP
- -
Patient Age: 84
Patient Sex: Female
Vancomycin Day #: 2
Indication: Skin And Soft Tissue
Requesting Provider: Dona Huerta
Pertinent Antimicrobial Allergies:
ampicillin - Anaphylaxis
cephalexin monohydrate - Rash
doxycycline - Rash
metronidazole - Rash
headache
tobramycin - Swelling
trimethoprim - Swelling, Red eyes
Height / Weight:
Height 5 ft 2 in
Actual Weight 76.685 kg
Pertinent Past Medical History: Basal Cell Carcinoma
- Vital Signs / Lab Results
Temp Pulse Resp BP Pulse Ox
98.5 F 66 20 141/57 96
11/21/24 07:25 11/21/24 07:25 11/21/24 07:25 11/21/24 07:25 11/21/24 07:25
Lab Results - Hematology
11/20/24 11/21/24
16:22 06:28
WBC 6.4 5.4
Lab Results - Chemistry
11/20/24 11/21/24
16:22 06:28
BUN 35 H 26 H
Creatinine 0.5 L 0.6
Estimated Creat Clear 67
Albumin 4.4
11/20/24
16:38
Lactic Acid 0.6 L
[2024-11-21] MEDS: TYLENOL 650 MG PO (09:04)
--- NOTE | 2024-11-21 09:07 | CON.ID ---
Consultation
-
Date/Time Consultation Requested: November 20, [id number]
Date/Time Consultation Performed: November 21, 2024 0900
Requesting Provider: JULIANNE Leary
Performing Provider: Dr. Elizabeth Daly
Reason for Consultation: Potential cellulitis with multiple antibiotic allergies
Chief Complaint / Past History
Chief Complaint
Both legs swelling, redness, pain, blisters
History of Present Illness
84-year-old female with history of atrial fibrillation on Eliquis, hypertension, erythromelalgia (chronic painful, red, swollen feet) who presented to the hospital November 20 due to bilateral lower extremity edema and pain. Patient reports she has
been having progressive bilateral lower extremity edema which became worse few days ago with blister formation, redness, warmth, and pain. The symptoms are different from her chronic erythromelalgia symptoms. She also has chronic numbness
tingling of bilateral legs; EMG negative or neuropathy. Of note, she cannot tolerate compression modalities due to pain. No fever or chills. She is currently on IV vancomycin. She received a dose of IV Lasix in the ER. Today the swelling has
improved. Peripheral ultrasound negative for DVT. She has multiple antibiotic allergies. She states that she had seen an telephony engineer and had skin testing and was told that she was allergic to penicillins the other antibiotics listed.
Past History
Additional Past Medical History:
HTN
PAF on Eliquis
Erythromelalgia
Anxiety
DJD
Additional Past Surgical History:
Basal cell carcinoma MOH's
Left open inguinal hernia repair with mesh
Left femur ORIF
Right shoulder RTC repair
Allergy History:
ampicillin Allergy (Verified 11/20/24 15:12)
Anaphylaxis
cephalexin monohydrate [From Keflex] Allergy (Verified 11/20/24 15:12)
Rash
doxycycline Allergy (Verified 11/20/24 15:12)
Rash
metronidazole [From Flagyl] Allergy (Verified 11/20/24 15:12)
Rash
thimerosal Allergy (Verified 11/20/24 15:12)
Swelling
tobramycin Allergy (Verified 11/20/24 15:12)
Swelling
trimethoprim Allergy (Verified 11/20/24 15:12)
Swelling, Red eyes
dexlansoprazole [From Dexilant] Adverse Reaction (Verified 11/20/24 15:12)
copious diarrhea
'a preservative' Allergy (Uncoded 11/20/24 15:12)
Unknown
Medications Reviewed: Yes
Current Antibiotics:
Vancomycin
Social History
Tobacco: Former Smoker
Alcohol: None
Drug: None
Personal:
Living: With Family
Family History
Family History: Not Pertinent
Review of Systems
Review of Systems
General: Negative Fever, Chills or Change in Appetite
HEENT: Negative Sinus Problems or Headache
Cardiovascular: Edema; Negative Chest Pain or Dyspnea
Respiratory: Negative Dyspnea or Cough
Gasteroenterology: Negative Nausea, Vomiting or Diarrhea
Endocrine: Negative Weakness
Neurological: Negative Dizziness
All systems: All other systems were reviewed and were negative
Vital Signs
Temp Pulse Resp BP Pulse Ox
98.5 F 66 20 141/57 96
11/21/24 07:25 11/21/24 07:25 11/21/24 07:25 11/21/24 07:25 11/21/24 08:35
Physical Exam
Physical Exam
Constitutional: No Acute Distress and Non-toxic
Eyes: No Conjunctival Hemorrhage and Sclera Anicteric
Cardiovascular: Regular Rate and S1/S2
Pulmonary: Clear
Gastrointestinal: Soft, Non Tender, Non Distended and Normal Bowel Sounds
Genito-Urinary: Negative CVA Tenderness
Extremities: Edema (BLE 2+ edema) and Other (Bilateral feet cool to touch, bluish-red coloration worse in dependent position); Negative Erythema (BLE minimal erythema improves with leg elevation; no warmth)
Wound: Other (RLE: 2 large blisters and several smaller ones. LLE: developing blisters)
Neurological: AO x 3
Lab / Diagnostic Study Results
11/21/24 06:28
11/21/24 06:28
Abs Immat Gran (auto) 0.0 10^3/uL (0-0.05) 11/20/24 16:22
Absolute Neuts (auto) 5.0 10^3/uL (1.4-6.5) 11/20/24 16:22
Absolute Lymphs (auto) 0.8 10^3/uL (1.2-3.4) L 11/20/24 16:22
Absolute Monos (auto) 0.5 10^3/uL (0.1-0.6) 11/20/24 16:22
Absolute Basos (auto) 0.0 10^3/uL (0-0.2) 11/20/24 16:22
Immature Gran % 0.3 % (0-0.5) 11/20/24 16:22
Neutrophils % 79.1 % (42.2-75.2) H 11/20/24 16:22
Lymphocytes % 12.6 % (20.5-51.1) L 11/20/24 16:22
Monocytes % 7.2 % (1.7-9.3) 11/20/24 16:22
Eosinophils % 0.6 % (0-6) 11/20/24 16:22
Basophils % 0.2 % (0-2) 11/20/24 16:22
Lactic Acid 0.6 mmol/L (0.7-2.0) L 11/20/24 16:38
Microbiology Results
Micro:
11/20/24 22:54 MRSA Screen - Pending
Nose
11/20/24 16:38 Blood Culture - Pending
Blood/Venous
11/20/24 Periph Vasc US: No evidence of right or left lower extremity deep venous thrombosis.
Assessment / Plan
# BLE edema with blisters
# Hx Chronic Erythromelalgia of bilateral foot
# Multiple abx allergies: PCN, cephalosporins, sulfa, doxycycline, metronidazole, tobramycin
- no overt signs of cellulitis
- DC Vancomycin
- Appreciate wound care recs.
- Pt unable to tolerate compression.
- Elevate legs.
- Chcek BLE arterial duplex/CHANI
ID will sign off. Call prn.
# Conditions KILN CHARGER
HTN
PAF on Eliquis
Erythromelalgia
Anxiety
DJD
Basal cell carcinoma MOH's
Left open inguinal hernia repair with mesh
Left femur ORIF
Right shoulder RTC repair
[2024-11-21] MEDS: DILAUDID 0.25 MG IV ×2 (10:10→16:57)
[2024-11-21 11:30] VITALS: BP 136/80
--- NOTE | 2024-11-21 13:25 | WOUNDNOTE ---
[facility] RN note: Patient admitted with cellulitis vs fluid overlay vs lymphedema. Patient lives with her and is current with VN.
See H&P for complete history.
PMH: HTN, a fib (Eliquis), fibromyalgia, polyneuropathy, anemia, anxiety, basal cell cancer, Moh's procedure R arm 2016, L femur fracture surgery, R shoulder surgery.
Wound Location and type/assessment: Patient admitted with: dermal blisters, broken blisters. Largest blister R medial calf, pink with yellow fibrin. Moderate serous drainage. LE pain less than last night. +2 LE edema. +Palpable pedal pulses. Venous
Doppler negative for DVT LE's.
Appetite: good.
Pressure redistribution devices in place: [employer] Accumax. Patient can reposition self in bed. She ambulates with a walker.
Plan: Le dressings applied. Instructed local wound care. Dr. Grady was in during visit who approved local care and knee high Chriss wraps if she accepts. Patient declined Chriss wrap d/t she states she cannot tolerate. Heels off bed with pillow.
t/c SPD and ordered more pillows for LE elevation. Discussed with patient and JAMES Zacarias.
Care plan to be updated and will follow as needed.
Suggested patient to follow up at wound care center upon discharge.
--- NOTE | 2024-11-21 13:34 | WOUNDNOTE ---
R CALF/HEEL (MEDIAL)
--- NOTE | 2024-11-21 13:35 | WOUNDNOTE ---
DOMINIC (R MEDIAL, L ANTERIOR)
--- NOTE | 2024-11-21 14:49 | CM ---
Patient seen bedside, initial assessment completed. Patient is a 84-year-old female with past medical history significant for benign hypertension, paroxysmal atrial fibrillation, GERD, fibromyalgia, peripheral polyneuropathy, anemia, anxiety and Hx
basal cell carcinoma who presented to [facility] ED for evaluation at recommendation of primary for bilateral lower extremity edema.
Patient resides w/ spouse in [facility] [address] [place]. Patient ambulates w/ RW, stated she wants to transition to a cane, additional shower chair in the bathroom. Denies SNF hx, current w/ [facility] for PT/OT/VN. OP therapy in the past.
Address, point of contact and insurance verified. Patient has [employer] as secondary insurance, spouse is a .
PCP: Patria Huynh
Pharmacy: [facility] for immediate needs. Patient uses [facility] through the [place] for re-occurring medications
Therapy assessed patient and is recommending home PT at d/c. Confirmed w/ Leah/Silvano that patient is active w/ services. Resume of care referral placed in [facility].
Patient is admitted obs. MARLEY form verbally reviewed, copy given to patient, copy on chart '
Plan: Home, resume services w/ [facility]
[2024-11-21 15:32] VITALS: BP 124/54
[2024-11-21 23:20] VITALS: BP 114/86
[2024-11-21] MEDS: MIRALAX 17 GRAMS PO (23:34)
[2024-11-22 06:00] VITALS: BMI 31.0
[2024-11-22 07:00] VITALS: BP 177/68
--- NOTE | 2024-11-22 07:49 | W.PN.HOSP.TC ---
Today's Communication/Plan
-
Diuresis
PT/OT
pain control
discharge planning tomorrow home with home services
Assessment / Plan
Assessment / Plan
Physical Exam
General: No acute distress, appears comfortable at this time
HEENT: NormoCephalic, Moist mucous membranes, Atraumatic
Respiratory: Clear to auscultation b/l
Cardiac: S1/S2 and Regular Rhythm
GI: Soft, Non Tender, Non Distended and Normal Bowel Sounds
Musculoskeletal: No Clubbing, No Cyanosis and No Edema
Skin: Warm, bilateral lower extremity erythema, edema, b/l dressings clean dry intact
Neuro: AOx3 conversant coherent
Psych: Calm and Intact Judgment/Insight
84F HTN pafib GERD fibromyalgia peripheral polyneuropathy anemia anxiety hx basal cell carcinoma referred by primary for evaluation bilateral lower extremity edema. Patient reports associated pain in bilateral lower extremities from waste down,
described as tingling consistent pain.
#bilateral lower extremity erythema, edema with blistering and weeping
#cellulitis (less likely) vs. lymphedema
BLLE US: No evidence of right or left lower extremity deep venous thrombosis
cont Lasix
Consult ID appreciated, unlikely cellulitis, empiric abx discontinued, monitor off
#benign hypertension
- continue losartan
#paroxysmal atrial fibrillation
- continue Eliquis and metoprolol
#fibromyalgia
#peripheral polyneuropathy
- continue lidocaine patch, prn Tylenol tramadol Dilaudid
- started Lyrica 25mg BID, cont
-Discussed Cymbalta, patient however reports adverse reaction but unable to specify further
#anemia
- stable
- monitor H/H
#GERD
#anxiety
#Hx basal cell carcinoma
PT/OT appreciated Home Services
Code status: full code
DVT prophylaxis: Eliquis
Discussed with patient and patient's Benjamin
I spent a total of 40 minutes with the patient or on the floor. More than 50% of this time involved counseling and coordination of care.
Anticipated Discharge: Within 24 hours
Subjective/Interval History
-
Date of Service: November 22, 2024
no acute distress appears comfortable at this time, resting in bed. Lower ext erythema swelling improved.
Objective Data
-
Labs:
Laboratory Results
11/22/24
07:21
WBC Pending
Hgb Pending
Hct Pending
Plt Count Pending
Sodium Pending
Potassium Pending
Chloride Pending
Carbon Dioxide Pending
BUN Pending
Creatinine Pending
Glucose Pending
Calcium Pending
Vital Signs:
Vital Signs
Temp Pulse Resp BP Pulse Ox
98.9 F 74 20 114/86 96
11/21/24 23:20 11/21/24 23:20 11/21/24 23:20 11/21/24 23:20 11/21/24 23:20
I&O
11/21/24 11/22/24 11/23/24
06:59 06:59 06:59
Intake Total 690 / 690 1080 / 1080
Output Total 800 / 800
Balance -110 / -110 1080 / 1080
[2024-11-22] MEDS: VITAMIN D3 (cholecalciferol) 25 MCG PO (08:13)
[2024-11-22] MEDS: LYRICA 25 MG PO ×2 (08:13→22:18)
[2024-11-22] MEDS: HYDROPHOR 1 APPLIC TOPICAL (08:13)
[2024-11-22] MEDS: ELIQUIS 5 MG PO ×2 (08:13→22:19)
[2024-11-22] MEDS: ZADITOR 1 DROP BOTH EYES (08:13)
[2024-11-22] MEDS: VITAMIN B-12 1000 MCG PO (08:13)
[2024-11-22 08:39] LABS: Hematocrit 34.8 % (37.0-47.0); Hemoglobin 11.4 g/dL (12.0-16.0); Mean Corp Hgb Conc. 32.8 g/dL (33.0-37.0); Mean Corpuscular Hgb 29.5 pg (27.0-31.0); Mean Corpuscular Volume 89.9 fL (81.0-99.0); Mean Platelet Volume 11.2 fL (7.4-10.4); Platelet Count 220 10^3/uL (130-400); Red Blood Cell Count 3.87 10^6/uL (4.20-5.40); Red Cell Dist. Width 14.1 % (11.5-14.5); White Blood Cell Count 5.5 10^3/uL (4.8-10.8)
[2024-11-22] MEDS: LASIX 40 MG PO (09:44)
[2024-11-22 09:50] VITALS: BP 165/72; PULSE 80
[2024-11-22 10:37] LABS: Blood Urea Nitrogen 28 mg/dl (7-17); Calcium 9.6 mg/dl (8.4-10.2); Carbon Dioxide 27 mmol/L (22-30); Chloride 103 mmol/L (98-107); Estimated Creatinine Clearance 67 ml/min; Glucose 79 mg/dl (70-99); Magnesium 2.1 mg/dl (1.6-2.3); Phosphorus 3.6 mg/dl (2.5-4.5); Potassium 4.4 mmol/L (3.5-5.1); Sodium 139 mmol/L (135-145); eGFR > 60.00
[2024-11-22] MEDS: DILAUDID 0.25 MG IV ×2 (13:36→22:25)
--- NOTE | 2024-11-22 15:06 | CM ---
Per hospitalist, patient will d/c tomorrow.
Therapy rec home PT, patient is current w/ [facility]. MARK ANTHONY referral in [facility] updated on d/c
Met patient bedside, aware of d/c tomorrow and that [facility] will resume services
IMM verbally reviewed, copy given to patient, copy on chart
Plan: Home, resume services w/ Rashid
[2024-11-22 15:45] VITALS: BP 134/58
[2024-11-22 23:41] VITALS: BP 144/74
[2024-11-23] MEDS: ULTRAM 50 MG PO (00:04)
[2024-11-23] MEDS: DILAUDID 0.25 MG IV (04:15)
[2024-11-23 06:00] VITALS: BMI 30.2
[2024-11-23 07:00] VITALS: BP 149/78
--- NOTE | 2024-11-23 07:12 | W.PN.HOSP.TC ---
Today's Communication/Plan
-
discharge
Assessment / Plan
Assessment / Plan
Physical Exam
General: No acute distress, appears comfortable at this time
HEENT: NormoCephalic, Moist mucous membranes, Atraumatic
Respiratory: Clear to auscultation b/l
Cardiac: S1/S2 and Regular Rhythm
GI: Soft, Non Tender, Non Distended and Normal Bowel Sounds
Musculoskeletal: No Clubbing, No Cyanosis and No Edema
Skin: Warm, bilateral lower extremity erythema, edema, b/l dressings clean dry intact
Neuro: AOx3 conversant coherent
Psych: Calm and Intact Judgment/Insight
84F HTN pafib GERD fibromyalgia peripheral polyneuropathy anemia anxiety hx basal cell carcinoma referred by primary for evaluation bilateral lower extremity edema. Patient reports associated pain in bilateral lower extremities from waste down,
described as tingling consistent pain.
#bilateral lower extremity erythema, edema with blistering and weeping
#cellulitis (less likely) vs. lymphedema
BLLE US: No evidence of right or left lower extremity deep venous thrombosis
Extremity Arterial study appreciated no significant stenosis
cont Lasix
Consult ID appreciated, unlikely cellulitis, empiric abx discontinued, monitor off
Wound care consult appreciated
cont local wound care
#benign hypertension
- continue losartan
#paroxysmal atrial fibrillation
- continue Eliquis and metoprolol
#fibromyalgia
#peripheral polyneuropathy
- continue lidocaine patch, prn Tylenol tramadol Dilaudid
- started Lyrica 25mg BID, cont
-Discussed Cymbalta, patient however reports adverse reaction but unable to specify further
#anemia
- stable
- monitor H/H
#GERD
#anxiety
#Hx basal cell carcinoma
PT/OT appreciated Home Services
Code status: full code
DVT prophylaxis: Eliquis
Medically stable for discharge home with home services and outpatient follow up recommendations.
Total Time Preparing Discharge ___40____ minutes including examination of the patient, summary of the hospital stay, instructions for continuing care to all relevant caregivers; and preparation of discharge records, prescriptions, and referral
forms if necessary.
Anticipated Discharge: Today
Subjective/Interval History
-
Date of Service: November 23, 2024
Seen and examined at bedside in no acute distress sitting up comfortably in chair. reports feeling well. Denies new acute issues at this time. Eager to go home.
Objective Data
-
Labs:
Laboratory Results
11/23/24
06:41
WBC Pending
Hgb Pending
Hct Pending
Plt Count Pending
Sodium Pending
Potassium Pending
Chloride Pending
Carbon Dioxide Pending
BUN Pending
Creatinine Pending
Glucose Pending
Calcium Pending
Vital Signs:
Vital Signs
Temp Pulse Resp BP Pulse Ox
98.4 F 77 16 144/74 94
11/22/24 23:41 11/22/24 23:41 11/22/24 23:41 11/22/24 23:41 11/22/24 23:41
I&O
11/22/24 11/23/24 11/24/24
06:59 06:59 06:59
Intake Total 1080 / 1080 840 / 840
Balance 1080 / 1080 840 / 840
[2024-11-23 07:16] LABS: Hematocrit 31.1 % (37.0-47.0); Hemoglobin 10.5 g/dL (12.0-16.0); Mean Corp Hgb Conc. 33.8 g/dL (33.0-37.0); Mean Corpuscular Hgb 29.8 pg (27.0-31.0); Mean Corpuscular Volume 88.4 fL (81.0-99.0); Mean Platelet Volume 10.8 fL (7.4-10.4); Platelet Count 203 10^3/uL (130-400); Red Blood Cell Count 3.52 10^6/uL (4.20-5.40); Red Cell Dist. Width 14.2 % (11.5-14.5); White Blood Cell Count 5.5 10^3/uL (4.8-10.8)
[2024-11-23 07:39] LABS: Blood Urea Nitrogen 26 mg/dl (7-17); Calcium 9.3 mg/dl (8.4-10.2); Carbon Dioxide 29 mmol/L (22-30); Chloride 103 mmol/L (98-107); Estimated Creatinine Clearance 57 ml/min; Glucose 84 mg/dl (70-99); Magnesium 2.1 mg/dl (1.6-2.3); Phosphorus 3.8 mg/dl (2.5-4.5); Potassium 4.4 mmol/L (3.5-5.1); Sodium 137 mmol/L (135-145); eGFR > 60.00
[2024-11-23] MEDS: ELIQUIS 5 MG PO (08:34)
[2024-11-23] MEDS: LASIX 40 MG PO (08:34)
[2024-11-23] MEDS: VITAMIN B-12 1000 MCG PO (08:35)
[2024-11-23] MEDS: VITAMIN D3 (cholecalciferol) 25 MCG PO (08:35)
[2024-11-23] MEDS: LYRICA 25 MG PO (08:35)
[2024-11-23] MEDS: ZADITOR 1 DROP BOTH EYES (08:35)
[2024-11-23] MEDS: HYDROPHOR 1 APPLIC TOPICAL (08:37)
--- NOTE | 2024-11-23 13:07 | CM ---
Chart reviewed and plan is to home with [facility] visiting nurses.
[facility]
[phone]
--- NOTE | 2024-11-23 14:13 | W.DCSUMMARY ---
Discharge Summary
Discharge Data
Date of Admission: 11/21/24
Date of Discharge: 11/23/24
-
Pending Results: No
Discharge Plan
-
Patient Disposition: Home with Home Care
Discharge Diagnosis/Procedures: bilateral lower extremity erythema, edema with blistering and weeping, Chronic Lymphedema lower extremities
Chronic Erythromelalgia of bilateral feet
Hypertension
paroxysmal atrial fibrillation
Fibromyalgia
peripheral polyneuropathy
anemia
GERD
anxiety
History basal cell carcinoma
Condition: Fair
Diet: Low Cholesterol and 2 Gram Sodium
Activity: With assistance, As tolerated and With Walker
Driving Restrictions: Not until seen by your Dr
Bathing Restrictions: None
Blood Work: Repeat CBC and BMP with primary care provider in 1 week of discharge.
Other Services: VN, PT and OT
Activity Restrictions/Additional Instructions:
Wound Care Instructions
LE wound care-clean with saline, Aquaphor ointment to dry intact skin, adaptic, alginate, ABD pad, secure with Kerlix, change daily and prn drainage.
Elevate heels off bed with pillows.
Frequent LE elevation.
Bilateral knee high Chriss wraps if tolerated; re-wrap daily.
Follow up at wound care center call for an appointment.
Please follow up with primary care provider in 1 week of discharge.
Lasix prescribed for lower extremity edema (chronic lymphedema).
Pregabalin prescribed for neuropathy.
Please take medications as prescribed/recommended and follow up with primary care provider and/or other healthcare provider involved in your care for refills and/or further adjustment to your medication regimen as necessary.
Referrals:
Patria uHynh MD [Family Provider] - in one week
Prescriptions:
New
furosemide 40 mg Tablet
40 mg PO DAILY Qty: 30 0RF
pregabalin 25 mg Capsule
25 mg PO BID Qty: 14 0RF
Continued
cholecalciferol (vitamin D3) 1,000 UNITS tablet
1,000 units PO DAILY
Eliquis 5 MG tablet
5 mg PO BID Qty: 30 0RF
Patient Comments:
told to stop 2 days prior
acetaminophen [Tylenol Extra Strength] 500 MG tablet
500 - 1,000 mg PO PRN PRN (Reason: PAIN)
lidocaine [Lidocaine Pain Relief] 4 % Adhesive Patch,Medicated
1 patch TOPICAL HS
cyanocobalamin (vitamin B-12) 1,000 mcg Tablet
1,000 mcg PO DAILY
metoprolol succinate 25 mg Tablet Extended Release 24 Hr
25 mg PO PRN PRN (Reason: PAF)
Rx Instructions:
one/day
losartan 50 mg Tablet
50 mg PO BID
olopatadine [Pataday Twice Daily Relief] 0.1 % Drops
1 drp BOTH EYES DAILY
loteprednol etabonate [Lotemax] 0.5 % Drops,Suspension
1 drp BOTH EYES DAILY
Hydrocortisone Ointment
1 dose topical PRN PRN (Reason: itch)
Traumeel Cream
1 dose topical PRN PRN (Reason: pain)
Estring 2 mg (7.5 mcg /24 hour) Ring
1 vag ring VAGINAL [id number]
Patient Comments:
in place per patient.
albuterol sulfate
1 puff inhalation .PRN Q4H PRN (Reason: SOB)
calcium carbonate 1,250 MG
1,000 mg PO PRN PRN (Reason: antacid)
Thera Tears
BOTH EYES Q6H
lidocaine 3 % Cream
See Rx Instructions .ROUTE .COMPLEX PRN (Reason: pain)
Rx Instructions:
1 applic topically as needed to bilateral feet.
tramadol 50 mg Tablet
50 mg PO Q6HPRN PRN (Reason: moderate to severe pain) Qty: 14 0RF
Discharge Orders:
Discharge Patient (As Directed); Ordered 11/23/24
Ordered By: Julieth Grady
Discharge Date and Time
Print Language: SERBIAN
[2024-11-23 14:37] VITALS: BP 127/48
== END 2024-11-23 14:49 | disposition home health service (06) | DRG 607 ==
LOC: 4 WEST ACU 13:19
PROVIDERS: Nurse Practitioner; Nurse Practitioner Family; ADMITTING PHYSICIAN Internal Medicine; ATTENDING PHYSICIAN Internal Medicine; EMERGENCY PHYSICIAN Emergency Medicine; FAMILY PHYSICIAN Family Medicine; OTHER PHYSICIAN Internal Medicine Infectious Disease
DX: I89.0 Lymphedema, not elsewhere classified (principal); I73.81 Erythromelalgia; I10 Essential (primary) hypertension; I48.0 Paroxysmal atrial fibrillation; K21.9 Gastro-esophageal reflux disease without esophagitis; M79.7 Fibromyalgia; G62.9 Polyneuropathy, unspecified; D64.9 Anemia, unspecified; F41.9 Anxiety disorder, unspecified; Z85.828 Personal history of other malignant neoplasm of skin; Z87.891 Personal history of nicotine dependence; Z88.0 Allergy status to penicillin; Z88.1 Allergy status to other antibiotic agents; Z88.8 Allergy status to other drugs, medicaments and biological substances; Z79.01 Long term (current) use of anticoagulants; M19.90 Unspecified osteoarthritis, unspecified site
CPT/HCPCS: 80048; 80053; 83605; 83735; 83880; 84100; 85025; 85027; 87040; 87070; 93306; 93922; 93925; 93970; 96365; 96375; 96376; 97110; 97116; 97162; 97167; 99284

== ENCOUNTER → 2024-11-26 07:59 | Outpatient (REF) | payer MEDICARE, OTHER, SELFPAY | LOC: WOUND 07:59 | PROVIDERS: ATTENDING PHYSICIAN Surgery; FAMILY PHYSICIAN Family Medicine | DX: I87.311 Chronic venous hypertension (idiopathic) with ulcer of right lower extremity (principal); L97.211 Non-pressure chronic ulcer of right calf limited to breakdown of skin; L97.311 Non-pressure chronic ulcer of right ankle limited to breakdown of skin; I87.2 Venous insufficiency (chronic) (peripheral); I48.0 Paroxysmal atrial fibrillation; G62.9 Polyneuropathy, unspecified; F07.81 Postconcussional syndrome; I34.0 Nonrheumatic mitral (valve) insufficiency; Z79.01 Long term (current) use of anticoagulants | CPT/HCPCS: 29581; 99203 ==

== ENCOUNTER → 2024-12-02 10:51 | Outpatient (REF) | payer MEDICARE, OTHER, SELFPAY | LOC: WOUND 10:51 | PROVIDERS: ATTENDING PHYSICIAN Surgery; FAMILY PHYSICIAN Family Medicine | DX: I87.311 Chronic venous hypertension (idiopathic) with ulcer of right lower extremity (principal); L97.211 Non-pressure chronic ulcer of right calf limited to breakdown of skin; L97.311 Non-pressure chronic ulcer of right ankle limited to breakdown of skin; I87.2 Venous insufficiency (chronic) (peripheral); I48.0 Paroxysmal atrial fibrillation; G62.9 Polyneuropathy, unspecified; Z79.01 Long term (current) use of anticoagulants; F07.81 Postconcussional syndrome; I34.0 Nonrheumatic mitral (valve) insufficiency | CPT/HCPCS: 99213 ==

== ENCOUNTER → 2024-12-05 16:39 | Outpatient (REF) | payer MEDICARE, OTHER, SELFPAY ==
[2024-12-05 17:25] LABS: Blood Urea Nitrogen 35 mg/dl (7-17); Calcium 9.5 mg/dl (8.4-10.2); Carbon Dioxide 28 mmol/L (22-30); Glucose 100 mg/dl (70-99); eGFR > 60.00
[2024-12-05 17:48] LABS: Chloride 108 mmol/L (98-107); Potassium 4.4 mmol/L (3.5-5.1); Sodium 139 mmol/L (135-145)
== END ==
LOC: REG 16:39
PROVIDERS: ATTENDING PHYSICIAN Family Medicine
DX: I10 Essential (primary) hypertension (principal); I48.0 Paroxysmal atrial fibrillation; R25.2 Cramp and spasm
CPT/HCPCS: 36415; 80048

== ENCOUNTER 2024-12-17 07:20 | Inpatient (IN) | payer MEDICARE, OTHER, SELFPAY ==
[2024-12-15 13:21] VITALS: BP 108/74
[2024-12-15 13:43] VITALS: BMI 31.3
[2024-12-15 13:44] VITALS: BP 103/74
--- NOTE | 2024-12-15 14:47 | ED.GENMED ---
History of Present Illness
General
Chief Complaint: Skin Problem
Source: patient
Exam Limitations: none
Time Seen by Provider: 12/15/24 14:17
Nursing documentation reviewed up to this point in time: agreed with
History of Present Illness
History of Present Illness:
84-year-old female presents emergency ferment due to bilateral leg edema, and right lower extremity cellulitis. It is painful and hot. She has a history of cellulitis in the past. She takes Eliquis for atrial fibrillation.
Past History
Past History
ED Past Medical History: Arrthythmia (Atrial fibrillation) and Other (Torn rotator cuff)
ED Past Surgical History: Orthopedic (Right rotator cuff), Tonsilectomy (Tonsils and adenoid) and Other (Eye surgery)
Social History
Tobacco: Non-smoker
Alcohol: Occasional
Personal:
Living: with family
Family History
Family History: Negative Diabetes, Hypertension or CAD
Review of Systems
Review of Systems
Allergies reviewed?: Yes
All Other Systems: Not applicable
Constitutional: Reports no symptoms
EENT: Reports no symptoms
Respiratory: Reports no symptoms
Cardiac: Reports no symptoms
ABD/GI: Reports no symptoms
: Reports no symptoms
Musculoskeletal: Reports edema
Skin: Reports rash
Neurological: Reports no symptoms
Endocrine: Reports no symptoms
Hematologic/Lymphatic: Reports no symptoms
Psychiatric: Reports no symptoms
Phy Exam
Physical Exam
Physical Exam:
Physical Exam
General: no apparent distress, not acutely ill
Neck: supple. no meningeal signs. normal posterior pharynx
Heart: s1/s2 regular rate and rhythm, no murmur. equal radial
pulses.
HEENT: Pupils equal round reactive to light, EOMI
Lungs: no acute respiratory distress. clear bilaterally
Abdomen: normal bowel sounds. not tender. no CVAT
Neuro: alert and oriented. no focal neurological deficits cranial nerves II through XII intact
Skin: Bilateral lower extremity erythema, right greater than left
Psychiatric: well kept. interactive and cooperative
Extremities: Bilateral tibial edema. no calf tenderness. negative homans. good distal pulses
Course
Orders/Labs/Results
Orders:
Orders
12/15/24 14:40
IV Insert/Care/Rem.- Treatment PRN
12/15/24 15:07
Basic Metabolic Panel Urgent
CRP [C-Reactive Protein] Urgent
Complete Blood Count/With Diff Urgent
ESR [Erythrocyte Sed Rate] Urgent
12/15/24 15:10
Acetaminophen [Tylenol] 650 mg PO NOW STA
12/15/24 17:07
Vancomycin [Vancocin] 2,000 mg 0.9% Sodium Chloride 500 ml [Nss] 500 ml IV NOW
12/15/24 17:36
Admit/Transfer Patient As Directed
Co-Sign Provider:
Level of Care: Observation services
Assign to:: Medical/Surgical
Physician / Group: [facility]/hospitalist
Diagnosis: cellulitis
PRN Pain Medication Management As Directed
May give lesser potent ordered pain med per pt: Yes
preference::
Protocol:: Medication orders for pain may be administered in a
manner that supports deferring to patient preference
when the pt is:
- Requesting an ordered lesser potent pain medication.
Least to most potent pain medications are defined
as: acetaminophen < NSAID < tramadol < opioids
(morphine, oxycodone, hydromorphone).
- Requesting a lesser dose of the same medication IF
ORDERED.
- Requesting a less intrusive route of administration
if both routes are prescribed by the provider (PO <
IV).
12/15/24 17:37
Code Status As Directed
Resuscitation Status: Full Code
Abnormal Lab Results
12/15/24
15:07
RBC 3.58 L 10^6/uL
(4.20-5.40)
Hgb 10.4 L g/dL
(12.0-16.0)
Hct 31.0 L %
(37.0-47.0)
MPV 11.7 H fL
(7.4-10.4)
Absolute Lymphs (auto) 1.0 L 10^3/uL
(1.2-3.4)
Lymphocytes % 15.6 L %
(20.5-51.1)
ESR 73 H mm/hour
(0-20)
Chloride 108 H mmol/L
(98-107)
BUN 49 H mg/dl
(7-17)
Glucose 101 H mg/dl
(70-99)
C-Reactive Protein 11.80 H mg/L
(0.0-10.00)
12/15/24 15:07
12/15/24 15:07
Vital Signs
Initial and Last Documented VS:
Initial Vital Signs
Temp Pulse Resp BP Pulse Ox
97.3 F 117 20 108/74 97
12/15/24 13:21 12/15/24 13:21 12/15/24 13:21 12/15/24 13:21 12/15/24 13:21
Last Documented Vital Signs
Temp Pulse Resp BP Pulse Ox
97.5 F 68 16 139/93 93
12/15/24 14:05 12/15/24 15:48 12/15/24 15:48 12/15/24 15:48 12/15/24 15:48
MDM/Problems Addressed
Differential Diagnosis Includes:
Cellulitis, DVT
MDM/Problems Addressed:
84-year-old female with bilateral cellulitis, admit to hospitalist. Vancomycin ordered. Doubt DVT.
Chronic conditions affecting care: Arrhythmia
*Pulse Oximetry
Patient hypoxic: no
*Front Desk Auxiliary Interpretation
Rate: Front Desk Auxiliary- N/A
*Critical Care Note
Total Time (30-74mins, 75-104mins- exclusive of procedures): Not Applicable
Data Reviewed
Review of Other/Old Records Reveals: Progress Notes (Prior admission for dermatitis and cellulitis)
Source: records
Patient Management
Social determinants of health affecting care: Living situation and Strong social support
Discussion with other providers: Hospitalist
Escalation/DeEscalation of care consider admission/obs:
Admission indicated
ED Attending Note
-
Portions of this chart may have been created with voice recognition software.� Occasional wrong word or��sound alike� substitutions may have occurred due to the inherent limitations of voice recognition software.
Discharge Plan
Departure
Patient Disposition: Admit
Date of Disposition: 12/15/24
Time of Disposition: 17:08
Admit to: Med/Surg
Presentation/result/management discussed w/ accepting MD/DO: Hospitalist
Patient with high blood pressure during this ER visit?: Yes
Condition: Good
Discharge Problem:
Bilateral cellulitis of lower leg
Prescriptions:
No Action
cholecalciferol (vitamin D3) 1,000 UNITS tablet
1,000 units PO DAILY
Eliquis 5 MG tablet
5 mg PO BID Qty: 30 0RF
acetaminophen [Tylenol Extra Strength] 500 MG tablet
1,000 mg PO Q6HPRN PRN (Reason: mild PAIN)
cyanocobalamin (vitamin B-12) 1,000 mcg Tablet
1,000 mcg PO DAILY
Estring 2 mg (7.5 mcg /24 hour) Ring
1 vag ring VAGINAL [id number]
Refresh Optive 0.5-0.9 % Drops
1 drp BOTH EYES BIDPRN PRN (Reason: dry eyes)
tramadol 50 mg tablet
50 mg PO BIDPRN PRN (Reason: moderate to severe pain)
Referrals:
Patria Huynh MD [Family Provider] -
Interventions
Interventions:
*Risk Screen - Suicide Last Done: 12/15/24 13:41
*General Assessment Last Done: 12/15/24 13:41
*Neglect/Abuse Screening Last Done: 12/15/24 13:41
*ED- Fall Risk Assessment Last Done: 12/15/24 13:41
*ED COVID-19 Vaccine History Last Done: 12/15/24 13:41
ED-Skin Assessment Last Done: 12/15/24 13:53
Discharge Date and Time
Print Language: ITALIAN
[2024-12-15] MEDS: TYLENOL 650 MG PO (15:17)
[2024-12-15 15:32] LABS: % Basophils 0.5 % (0-2); % Eosinophils 1.5 % (0-6); % Immature Granulocytes 0.3 % (0-0.5); % Lymphocytes 15.6 % (20.5-51.1); % Monocytes 8.2 % (1.7-9.3); % Neutrophils 73.9 % (42.2-75.2); Absolute Eosinophils 0.1 10^3/uL (0-0.7); Absolute Monocytes 0.5 10^3/uL (0.1-0.6); Absolute Neutrophils 4.8 10^3/uL (1.4-6.5); Hemoglobin 10.4 g/dL (12.0-16.0); Mean Corp Hgb Conc. 33.5 g/dL (33.0-37.0); Mean Corpuscular Hgb 29.1 pg (27.0-31.0); Mean Corpuscular Volume 86.6 fL (81.0-99.0); Mean Platelet Volume 11.7 fL (7.4-10.4); Nucleated Red Blood Cells % 0 %; Platelet Count 202 10^3/uL (130-400); Red Blood Cell Count 3.58 10^6/uL (4.20-5.40); White Blood Cell Count 6.5 10^3/uL (4.8-10.8)
[2024-12-15 15:33] LABS: Erythrocyte Sed Rate 73 mm/hour (0-20)
[2024-12-15 15:48] VITALS: BP 139/93
[2024-12-15 15:48] LABS: Blood Urea Nitrogen 49 mg/dl (7-17); Calcium 9.5 mg/dl (8.4-10.2); Carbon Dioxide 24 mmol/L (22-30); Chloride 108 mmol/L (98-107); Estimated Creatinine Clearance 50 ml/min; Glucose 101 mg/dl (70-99); Sodium 137 mmol/L (135-145); eGFR > 60.00
--- NOTE | 2024-12-15 17:25 | HPS.HSE ---
Family Physician
-
Family Physician: Patria Huynh
Chief Complaint
-
Right leg pain
History of Present Illness
84-year-old female was presenting from home with complaints of right lower extremity pain. Patient states of worsening of right lower extremity edema which started last night. Denies any fever or chills. Denies any trauma. States the erythema
has worsened in the right leg. Also complaining of left leg pain. Denies any falls leading to pain or trauma. Of note patient was admitted earlier in the month for lower extremity edema and pain. Patient states the right lower extremity erythema
has worsened compared to earlier in the month. Also asking for pain medication for pain control.
Medical History
Past Medical History
Past Medical History: Reports Other
Additional Past Medical History:
benign hypertension
paroxysmal atrial fibrillation
GERD
fibromyalgia
peripheral polyneuropathy
anemia
anxiety
Hx basal cell carcinoma
Past Surgical History: Reports Other
Additional Past Surgical History:
Tonsillectomy and adenoidectomy
Basal cell MOHS surgery
Right shoulder rotator cuff repair
Bilateral Cataract surgery
excision of squamous cell right arm
open left inguinal hernia repair w mesh (Pellini)
fx of L hip ORIF()
Social History
Tobacco: Former Smoker
Employment: Retired
Family History
Family History: Not pertinent
Allergies / Home Medications
Allergies reflects when Allergies were last updated in [facility].
Home
Allergies
Allergy/AdvReac Type Severity Reaction Status Date / Time
ampicillin Allergy Anaphylaxis Verified 12/15/24 13:23
age 18
cephalexin monohydrate Allergy Rash/difficulty Verified 12/15/24 13:23
[From Keflex] breathing
doxycycline Allergy Rash Verified 12/15/24 13:23
metronidazole [From Flagyl] Allergy Rash Verified 12/15/24 13:23
thimerosal Allergy Swelling Verified 12/15/24 13:23
tobramycin Allergy Swelling Verified 12/15/24 13:23
trimethoprim Allergy Swelling, Verified 12/15/24 13:23
Red eyes
duloxetine [From Cymbalta] AdvReac Unknown Unknown Unverified 12/15/24 13:23
dexlansoprazole AdvReac copious Verified 12/15/24 13:23
[From Dexilant] diarrhea
'a preservative' Allergy Unknown Uncoded 12/15/24 13:23
Home Medications
cholecalciferol (vitamin D3) 25 mcg (1,000 unit) tablet 1,000 units PO DAILY Supplement 09/21/14
apixaban 5 mg tablet (Eliquis) 5 mg PO BID #30 tabs 11/18/15
acetaminophen 500 mg tablet (Tylenol Extra Strength) 1,000 mg PO Q6HPRN PRN mild PAIN 09/21/22
cyanocobalamin (vitamin B-12) 1,000 mcg tablet 1,000 mcg PO DAILY Supplement 09/21/22
estradiol 2 mg (7.5 mcg/24 hour) vaginal ring (Estring) 1 vag ring vaginal [id number] Hormonal Agent 09/21/22
carboxymethylcellulose 0.5 %-glycerin 0.9 % eye drops (Refresh Optive) 1 drp BOTH EYES BIDPRN PRN dry eyes 12/15/24
tramadol 50 mg tablet 50 mg PO BIDPRN PRN moderate to severe pain 12/15/24
Medications with original date entered in [facility]
Allergy/Medication List:
Allergies
Allergy/AdvReac Type Severity Reaction Status Date / Time
ampicillin Allergy Anaphylaxis Verified 12/15/24 13:23
age 18
cephalexin monohydrate Allergy Rash/difficulty Verified 12/15/24 13:23
[From Keflex] breathing
doxycycline Allergy Rash Verified 12/15/24 13:23
metronidazole [From Flagyl] Allergy Rash Verified 12/15/24 13:23
thimerosal Allergy Swelling Verified 12/15/24 13:23
tobramycin Allergy Swelling Verified 12/15/24 13:23
trimethoprim Allergy Swelling, Verified 12/15/24 13:23
Red eyes
duloxetine [From Cymbalta] AdvReac Unknown Unknown Unverified 12/15/24 13:23
dexlansoprazole AdvReac copious Verified 12/15/24 13:23
[From Dexilant] diarrhea
'a preservative' Allergy Unknown Uncoded 12/15/24 13:23
Home Medications
cholecalciferol (vitamin D3) 25 mcg (1,000 unit) tablet 1,000 units PO DAILY Supplement 09/21/14
apixaban 5 mg tablet (Eliquis) 5 mg PO BID #30 tabs 11/18/15
acetaminophen 500 mg tablet (Tylenol Extra Strength) 1,000 mg PO Q6HPRN PRN mild PAIN 09/21/22
cyanocobalamin (vitamin B-12) 1,000 mcg tablet 1,000 mcg PO DAILY Supplement 09/21/22
estradiol 2 mg (7.5 mcg/24 hour) vaginal ring (Estring) 1 vag ring vaginal [id number] Hormonal Agent 09/21/22
carboxymethylcellulose 0.5 %-glycerin 0.9 % eye drops (Refresh Optive) 1 drp BOTH EYES BIDPRN PRN dry eyes 12/15/24
tramadol 50 mg tablet 50 mg PO BIDPRN PRN moderate to severe pain 12/15/24
Review of Systems
-
History Source: Patient
Constitutional: Reports No Symptoms
EENT: Reports No Symptoms
Respiratory: Reports No Symptoms
Cardiac: Reports No Symptoms
Abdomen/GI: Reports No Symptoms
: Reports No Symptoms
Musculoskeletal: Reports No Symptoms
Skin: Reports See HPI
Neurological: Reports No Symptoms
Physical Exam
Vital Signs
Vital Signs
Temp Pulse Resp BP Pulse Ox
97.5 F 68 16 139/93 93
12/15/24 14:05 12/15/24 15:48 12/15/24 15:48 12/15/24 15:48 12/15/24 15:48
Physical Exam
General: Well Developed, Well Nourished and No Apparent Distress
HEENT: NormoCephalic, Moist mucous membranes and Atraumatic
Respiratory: Clear
Cardiac: S1/S2 and Regular Rhythm; No Murmur or Rub
GI: Soft, Non Tender, Non Distended and Normal Bowel Sounds; No Organomegaly
Rectal: Deferred by Provider
Musculoskeletal: No Clubbing, No Cyanosis and Other (BL LE erythema, RLE w/open blisters. Warm to touch )
Skin: No Rash
Neuro: Awake and Nonfocal/grossly intact
Psych: Anxious
Laboratory Results
-
12/15/24 15:07
12/15/24 15:07
Laboratory Results
Total Bilirubin Cancelled 12/15/24 15:07
AST Cancelled 12/15/24 15:07
ALT Cancelled 12/15/24 15:07
Alkaline Phosphatase Cancelled 12/15/24 15:07
Impression/Plan
-
#bilateral lower extremity erythema, edema with blistering and weeping with suspected right lower extremity cellulitis versus lymphedema
# Hx Chronic Erythromelalgia of bilateral foot
Extremity Arterial study 11/21/24 appreciated no significant stenosis
Consider as needed Lasix
Will add pregabalin
Continue with IV vancomycin
Trend creatinine
ESR and CRP elevated now compared to prior admission
#benign hypertension
-With recent hypotension was taken off losartan
#paroxysmal atrial fibrillation
- continue Eliquis
#fibromyalgia
#peripheral polyneuropathy
-Pain control
#anemia
- stable
- monitor H/H
#GERD
#anxiety
#Hx basal cell carcinoma
Code status: full code
DVT prophylaxis: Eliquis
[2024-12-15] MEDS: VANCOCIN 540 MG IV (18:30)
--- NOTE | 2024-12-15 19:29 | PHA.VAN.IN ---
Assessment
- Assessment
Renal Function: Appears similar to baseline
Concomitant Antimicrobials: none
AUC Dosing Plan
- Dosing Variables
Dosing Weight (kg): 77.5
Dosing CrCl (ml/min): 50
Vd coefficient (L/kg): 0.6
- Empiric Dosing
Initial / Loading Dose: 2000 mg adm ~1830 12/15/24
Maintenance Regimen: 1000 mg IV q24h to start 12/16
Estimated AUC (mcg*h/mL): 479
Estimated Peak (mcg*h/mL): 32.2
Estimated Trough (mcg/ml): 11.2
Estimated Half Life (H): 15.1
- Monitoring
No levels ordered at this time: consider levels when pt nears steady state
Pharmacokinetics Vancomycin I
- -
Patient Age: 84
Patient Sex: Female
Vancomycin Day #: 1
Indication: Skin And Soft Tissue
Requesting Provider: Gi
Pertinent Antimicrobial Allergies:
ampicillin, cephalexin, doxycycline, metronidazole, tobramycin, trimethoprim, 'a preservative'
Height / Weight:
Height 5 ft 2 in
Actual Weight 77.5 kg
Pertinent Past Medical History: BMI ~31
- Vital Signs / Lab Results
Temp Pulse Resp BP Pulse Ox
97.5 F 68 16 139/93 93
12/15/24 14:05 12/15/24 15:48 12/15/24 15:48 12/15/24 15:48 12/15/24 15:48
Lab Results - Hematology
12/15/24
15:07
WBC 6.5
Lab Results - Chemistry
12/15/24
15:07
BUN 49 H
Creatinine 0.8
Estimated Creat Clear 50
Albumin Cancelled
[2024-12-15] MEDS: ROXICODONE 5 MG PO ×2 (19:34→23:34)
[2024-12-15] MEDS: ELIQUIS 5 MG PO (19:34)
[2024-12-15 19:43] VITALS: BP 137/67
--- NOTE | 2024-12-15 20:00 | PTCARENOTE ---
Patient arrived from the ED via stretcher with vancomycin infusing. Patient pulled over onto the bed. AAOx3, VSS. Usually uses a walker at baseline but has not walked recently due to the pain. Patient c/o 05/02 LE pain. PRN med given see SEP. B/L LE
swollen, red, and warm to the touch, and open to air. Pt states she has pain when anything touching her legs. Patient oriented to the room, call rodas is within reach.
[2024-12-15 21:08] VITALS: BMI 31.0
[2024-12-15 21:10] VITALS: BMI 31.0
[2024-12-15] MEDS: LYRICA 50 MG PO (21:15)
--- NOTE | 2024-12-15 21:48 | PTCARENOTE ---
RN and PCT had trouble obtaining oral and/or axillary temperature. Patient stated she had the same problem downstairs. Pt allowed RN to take one rectal temp, 96.1 F. Patient AAOx3, other VS stable. Warm blankets placed on patients upper body since
pt refused anything touching her legs due to pain. FISH GRADER aware.
[2024-12-15 23:29] VITALS: BP 116/68
[2024-12-15] MEDS: SENOKOT-S 1 TABLET PO (23:32)
[2024-12-16] MEDS: ULTRAM 50 MG PO ×3 (00:34→20:21)
[2024-12-16] MEDS: ROXICODONE 5 MG PO ×2 (03:00→04:26)
[2024-12-16] MEDS: VANCOCIN 200 IV (05:03)
[2024-12-16 06:00] VITALS: BMI 31.1
[2024-12-16 07:12] LABS: % Basophils 0.4 % (0-2); % Eosinophils 1.7 % (0-6); % Immature Granulocytes 0.3 % (0-0.5); % Lymphocytes 13.4 % (20.5-51.1); % Monocytes 8.6 % (1.7-9.3); % Neutrophils 75.6 % (42.2-75.2); Absolute Eosinophils 0.1 10^3/uL (0-0.7); Absolute Monocytes 0.6 10^3/uL (0.1-0.6); Absolute Neutrophils 5.6 10^3/uL (1.4-6.5); Hematocrit 29.2 % (37.0-47.0); Hemoglobin 9.7 g/dL (12.0-16.0); Mean Corp Hgb Conc. 33.2 g/dL (33.0-37.0); Mean Corpuscular Volume 87.4 fL (81.0-99.0); Mean Platelet Volume 10.7 fL (7.4-10.4); Nucleated Red Blood Cells % 0 %; Platelet Count 207 10^3/uL (130-400); Red Blood Cell Count 3.34 10^6/uL (4.20-5.40); Red Cell Dist. Width 14.1 % (11.5-14.5); White Blood Cell Count 7.5 10^3/uL (4.8-10.8)
[2024-12-16 07:29] VITALS: BP 111/63
[2024-12-16 07:33] LABS: Blood Urea Nitrogen 37 mg/dl (7-17); Calcium 9.3 mg/dl (8.4-10.2); Carbon Dioxide 30 mmol/L (22-30); Chloride 105 mmol/L (98-107); Estimated Creatinine Clearance 57 ml/min; Glucose 104 mg/dl (70-99); Potassium 4.2 mmol/L (3.5-5.1); Sodium 139 mmol/L (135-145); eGFR > 60.00
[2024-12-16] MEDS: ELIQUIS 5 MG PO ×2 (08:10→20:21)
[2024-12-16] MEDS: LYRICA 25 MG PO (08:10)
[2024-12-16] MEDS: VITAMIN D3 (cholecalciferol) 25 MCG PO (08:11)
[2024-12-16] MEDS: VITAMIN B-12 1000 MCG PO (08:11)
--- NOTE | 2024-12-16 08:18 | PHA.VAN.FU ---
Vancomycin Assessment / Plan
- Assessment
Renal Function: SCR Decreasing
WBC's are: Trending Up
In the past 24 hrs, patient has been: Hypothermic (Tmin = 96.1)
- Dosing Plan
Continue: Vanc 1gm IV Q24H
- Monitoring Plan
No level(s) ordered at this time: Consider levels after 12/18 dose
- Follow Up
Pharmacy will continue to follow.
Vancomycin Follow UP
- -
Patient Age: 84
Patient Sex: Female
Vancomycin Day #: 2
Indication: Skin And Soft Tissue
Requesting Provider: Gi
Pertinent Antimicrobial Allergies:
ampicillin, cephalexin, doxycycline, metronidazole, tobramycin, trimethoprim, 'a preservative'
Height / Weight:
Height 5 ft 2 in
Actual Weight 76.771 kg
Pertinent Past Medical History: BMI ~31
- Vital Signs / Lab Results
Temp Pulse Resp BP Pulse Ox
97.5 F 87 18 111/63 93
12/16/24 07:29 12/16/24 07:29 12/16/24 07:29 12/16/24 07:29 12/16/24 07:29
Lab Results - Hematology
12/15/24 12/16/24
15:07 06:29
WBC 6.5 7.5
Lab Results - Chemistry
12/15/24 12/16/24
15:07 06:29
BUN 49 H 37 H
Creatinine 0.8 0.7
Estimated Creat Clear 50 57
Albumin Cancelled
[2024-12-16 08:24] VITALS: BP 112/77
--- NOTE | 2024-12-16 08:27 | PTCARENOTE ---
Patient c/o 'light chest pain' 11/30 this am. BP 112/77 HR 108. EKG obtained. Dr. Glez notified via TT.
--- NOTE | 2024-12-16 08:44 | W.PN.HOSP.TC ---
Today's Communication/Plan
-
Cardiology consult
continue antibiotics.
Assessment / Plan
Assessment / Plan
Impression:
84-year-old female with a history of paroxysmal A-fib, hypertension, fibromyalgia, anemia, and anxiety was presenting from home with complaints of right lower extremity pain. Patient states of worsening of right lower extremity edema. Denies any
fever or chills. Denies any trauma. Associated with erythema which worsened in the right leg. Also complaining of left leg pain.
Started on IV antibiotic in form of vancomycin.
Developed A-fib with RVR.
Assessment/plan:
#bilateral lower extremity erythema, edema with blistering and weeping with suspected right lower extremity cellulitis versus lymphedema
# Hx Chronic Erythromelalgia of bilateral foot
Extremity Arterial study 11/21/24 appreciated no significant stenosis
Consider as needed Lasix
Initially had pregabalin but had reaction to it, discontinued
Continue with IV vancomycin
Trend creatinine
ESR and CRP elevated now compared to prior admission
Wound care consult
Chest pain
Possible secondary to A-fib with RVR. Cardiology consulted.
Troponin pending
#benign hypertension
-With recent hypotension was taken off losartan
#paroxysmal atrial fibrillation
Patient developed A-fib with RVR
- continue Eliquis
Cardiology consult
#fibromyalgia
#peripheral polyneuropathy
-Pain control
#anemia
- stable
- monitor H/H
#GERD
#anxiety
#Hx basal cell carcinoma
CODE STATUS: Full code
DVT prophylaxis: Eliquis
Diet: Regular diet
Family communication: Discussed with family at bedside
Disposition: Cardiology consult, continue antibiotics.
Total time spent on today's encounter was 65 minutes which included time spent in counseling the patient/family regarding diagnosis and treatment plan as listed above, goals of care, and symptom management. Case was discussed with nursing staff,
specialists, and care coordinators/case management. All labs and imaging personally reviewed by me. Remainder the time spent in detailed review of previous records, lab data, imaging, and other medical provider documentation.
Anticipated Discharge: Within 24 hours
Subjective/Interval History
-
Date of Service: December 16, 2024
Patient seen and examined at bedside, family at bedside.
Still complaining of right leg pain.
Patient had chest pain today morning and found to be in A-fib with RVR.
Cardiology consulted.
Objective Data
-
Labs:
Laboratory Results
12/16/24
06:29
WBC 7.5
Hgb 9.7 L
Hct 29.2 L
Plt Count 207
Sodium 139
Potassium 4.2
Chloride 105
Carbon Dioxide 30
BUN 37 H
Creatinine 0.7
Glucose 104 H
Calcium 9.3
Vital Signs:
Vital Signs
Temp Pulse Resp BP Pulse Ox
97.5 F 108 18 112/77 94
12/16/24 07:29 12/16/24 08:24 12/16/24 08:24 12/16/24 08:24 12/16/24 08:24
I&O
12/15/24 12/16/24 12/17/24
06:59 06:59 06:59
Intake Total 680 / 680 180 / 180
Balance 680 / 680 180 / 180
Physical Exam
-
General: Well Developed, Well Nourished, No Apparent Distress and Comfortable
HEENT: Normocephalic, Atraumatic, Moist Mucous Membranes, No Ptosis, PERRLA and Nose Appears Normal
Respiratory: Clear to Auscultation and Non Labored Respirations
Cardiac: S1/S2 and Irregular Rhythm
Breast: Deferred by me
GI: Soft, Nontender, Nondistended and Normal Bowel Sounds
Genito-urinary: No Costovertebral Tender
Musculoskeletal: No Clubbing, No Cyanosis, Edema, Right Lower Extrem and Edema, Left Lower Extrem
Skin: Rash (Right lower extremity rash/lesion), Lesions and Other (right lower extremity erythema)
Neuro: Awake, Alert, Oriented, AO x 3 and No Motor Deficits
Psych: Calm
Data Reviewed
-
Diagnostic Radiology: Image personally visualized and interpreted and Report Reviewed by me
CT Scan: Image personally visualized and interpreted and Report Reviewed by me
Ultrasound: Image personally visualized and interpreted and Report Reviewed by me
MRI: Image personally visualized and interpreted and Report Reviewed by me
Medical Tests (Nuc Med, Echo etc): Image personally visualized and interpreted and Report Reviewed by me
Labs: Labs Reviewed by me
Old Records: Reviewed
[2024-12-16 09:18] VITALS: BMI 31.0
[2024-12-16] MEDS: TYLENOL 650 MG PO ×2 (11:12→20:22)
[2024-12-16 11:19] VITALS: BP 149/78
--- NOTE | 2024-12-16 13:41 | CON.CAR ---
Consultation
Consultation Request
Date/Time Consultation Requested: 12/16/24
Date/Time Consultation Performed: 12/16/24
Requesting Provider: Newton
Performing Provider: Eden
Reason for Consultation: AFib RVR
Medical History
-
Chief Complaint: lower extremity swelling and cellulitis
History of Present Illness:
84-year-old woman past medical history of atrial fibrillation on Eliquis who was recently admitted for lower extremity cellulitis and presented again on 12/15/2024 for reevaluation of worsening lower extremity edema and cellulitis. Cardiology is
consulted for atrial fibrillation.
Patient tells me over the past week she has had intermittent palpitations she describes as tumbling in her chest that she associates with atrial fibrillation. Normally takes as needed metoprolol at home and this generally helps to improve her
palpitations and heart rate. ECG from earlier today shows atrial fibrillation with rapid ventricular response. Rates are better controlled on review of telemetry. She has not been treated with any AV jose blockers at this point.
Tells me she has had worsening lower extremity edema and associated lower extremity cellulitis. Has had ulcerated leg wounds which have been weeping. In the past was tried on Lasix but felt that it was 'too strong.'
PMHx:
benign hypertension
paroxysmal atrial fibrillation
GERD
fibromyalgia
peripheral polyneuropathy
anemia
anxiety
Hx basal cell carcinoma
Past Surgical History: Reports Other
Additional Past Surgical History:
Tonsillectomy and adenoidectomy
Basal cell MOHS surgery
Right shoulder rotator cuff repair
Bilateral Cataract surgery
excision of squamous cell right arm
open left inguinal hernia repair w mesh (Pellini)
fx of L hip ORIF()
Past Medical History
Past Medical History: Other (as above)
Past Surgical History: Other (as above)
Social History
Tobacco: Former Smoker
Employment: Retired
Family History
Family History: Reviewed & Not Pertinent
Allergies / Home Medications
Allergy/AdvReac Type Severity Reaction Status Date / Time
ampicillin Allergy Anaphylaxis Verified 12/15/24 13:23
age 18
cephalexin monohydrate Allergy Rash/difficulty Verified 12/15/24 13:23
[From Keflex] breathing
doxycycline Allergy Rash Verified 12/15/24 13:23
gabapentin Allergy reported Verified 12/15/24 21:56
ataxia
metronidazole [From Flagyl] Allergy Rash Verified 12/15/24 13:23
thimerosal Allergy Swelling Verified 12/15/24 13:23
tobramycin Allergy Swelling Verified 12/15/24 13:23
trimethoprim Allergy Swelling, Verified 12/15/24 13:23
Red eyes
duloxetine [From Cymbalta] AdvReac Unknown Unknown Unverified 12/15/24 13:23
dexlansoprazole AdvReac copious Verified 12/15/24 13:23
[From Dexilant] diarrhea
'a preservative' Allergy Unknown Uncoded 12/15/24 13:23
�Medication �Instructions �Recorded �Confirmed �Type
cholecalciferol (vitamin D3) 25 1,000 units PO DAILY Supplement 09/21/14 12/15/24 History
mcg (1,000 unit) tablet
apixaban 5 mg tablet (Eliquis) 5 mg PO BID #30 tabs 11/18/15 12/15/24 Rx
acetaminophen 500 mg tablet 1,000 mg PO Q6HPRN PRN mild PAIN 09/21/22 12/15/24 History
(Tylenol Extra Strength)
cyanocobalamin (vitamin B-12) 1,000 mcg PO DAILY Supplement 09/21/22 12/15/24 History
1,000 mcg tablet
estradiol 2 mg (7.5 mcg/24 hour) 1 vag ring vaginal [id number] 09/21/22 12/15/24 History
vaginal ring (Estring) Hormonal Agent
carboxymethylcellulose 0.5 1 drp BOTH EYES BIDPRN PRN dry eyes 12/15/24 12/15/24 History
%-glycerin 0.9 % eye drops
(Refresh Optive)
tramadol 50 mg tablet 50 mg PO BIDPRN PRN moderate to 12/15/24 12/15/24 History
severe pain
Review of Systems
-
History Source: Patient
All other systems: Negative unless noted
Physical Exam
Vital Signs
Temp Pulse Resp BP Pulse Ox
97.8 F 123 20 149/78 94
12/16/24 11:19 12/16/24 11:19 12/16/24 11:19 12/16/24 11:19 12/16/24 11:19
Lab Results
12/16/24 06:29
12/16/24 06:29
Physical Exam
General: Well Developed
HEENT: Normocephalic
Respiratory: Clear
Cardiac: S1/S2 and Irregular Rhythm
Breast: Deferred by me
GI: Soft
Musculoskeletal: Edema
Skin: Warm, Dry and Other (ulceration and erythema of the RLE)
Neuro: Awake and Alert
Psych: Calm
Impression / Plan
-
Rn Operating Room: Mazariegos
Assessment:
Atrial fibrillation with rapid ventricular response
Lower extremity edema
Lower extremity cellulitis
History of paroxysmal atrial fibrillation
Chronic anticoagulation with Eliquis
Echo 11/21/24: LVEF 70-75%, mild MR, mild TR PASP 30-35mmHg
Plan:
#Atrial fibrillation with rapid ventricular response:
Prescribed Toprol-XL 25 mg as needed for palpitations as an outpatient, will order standing for now
Monitor heart rate on telemetry for goal heart rate less than 110 bpm
In the setting of cellulitis may need to tolerate slightly higher heart rate goal
Continue Eliquis for stroke prophylaxis
#LE edema:
Suspect this is multifactorial in part due to lymphedema but there may also be a component of heart failure preserved ejection fraction
Check proBNP
No need to repeat echo as one was done earlier this month
Start low-dose maintenance diuretic, Lasix 20 mg daily, to see if this improves her edema
Follow-up appointment with primary system support specialist Dr. Mazariegos already scheduled for 12/27/2024
Data Reviewed
-
EKG: Tracing Personally Visualized and interpreted
Medical Tests (Nuc Med, Echo etc): Report Reviewed by me
Labs: Labs Reviewed by me
Old Records: Reviewed
[2024-12-16 14:13] LABS: ALT (SGPT) 24 U/L (0-35); AST (SGOT) 23 U/L (14-36); Albumin 3.8 g/dl (3.5-5.0); Alkaline Phosphatase 125 U/L (38-126); Total Bilirubin 0.4 mg/dl (0.2-1.3); Total Protein 6.1 g/dl (6.3-8.2)
[2024-12-16 14:16] LABS: Troponin I < 0.012 ng/ml
[2024-12-16 14:33] LABS: NT-proBNP 3540 pg/ml
[2024-12-16] MEDS: LASIX 20 MG PO (14:33)
[2024-12-16] MEDS: TOPROL XL 25 MG PO (14:34)
[2024-12-16 15:01] VITALS: BP 112/67
--- NOTE | 2024-12-16 16:17 | CM ---
MARLEY letter explained and provided to patient, patient lives with her spouse in a 2 story town home, 3 steps to enter, patient is independent with adl's and uses a cane or walker with ambulation, patient is current with [facility] and referral sent to
[facility] to resume services.
PCP: Patria Huynh
Pharmacy: [facility] - [place]
[facility]
[phone]
[phone]
Plan; Home with [facility] visiting nurses.
[2024-12-16 19:20] VITALS: BP 113/70
[2024-12-16] MEDS: MIRALAX 17 GRAMS PO (20:21)
[2024-12-16 22:00] LABS: Troponin I < 0.012 ng/ml
[2024-12-16 22:54] VITALS: BP 111/66
[2024-12-17] MEDS: ROXICODONE 5 MG PO (01:31)
[2024-12-17 03:27] VITALS: BP 118/65
[2024-12-17] MEDS: VANCOCIN 200 IV (05:24)
[2024-12-17 05:30] LABS: Blood Urea Nitrogen 40 mg/dl (7-17); Calcium 9.6 mg/dl (8.4-10.2); Carbon Dioxide 27 mmol/L (22-30); Chloride 108 mmol/L (98-107); Estimated Creatinine Clearance 50 ml/min; Glucose 83 mg/dl (70-99); Potassium 4.5 mmol/L (3.5-5.1); Sodium 138 mmol/L (135-145); eGFR > 60.00
[2024-12-17 05:47] LABS: Troponin I 0.029 ng/ml
[2024-12-17 07:29] LABS: Hematocrit 31.8 % (37.0-47.0); Hemoglobin 10.4 g/dL (12.0-16.0); Mean Corp Hgb Conc. 32.7 g/dL (33.0-37.0); Mean Corpuscular Hgb 29.3 pg (27.0-31.0); Mean Corpuscular Volume 89.6 fL (81.0-99.0); Mean Platelet Volume 10.5 fL (7.4-10.4); Platelet Count 204 10^3/uL (130-400); Red Blood Cell Count 3.55 10^6/uL (4.20-5.40); Red Cell Dist. Width 14.2 % (11.5-14.5); White Blood Cell Count 6.5 10^3/uL (4.8-10.8)
[2024-12-17] MEDS: TOPROL XL 25 MG PO (07:45)
[2024-12-17] MEDS: VITAMIN B-12 1000 MCG PO (07:45)
[2024-12-17] MEDS: LASIX 20 MG PO (07:45)
[2024-12-17] MEDS: ELIQUIS 5 MG PO (07:45)
[2024-12-17] MEDS: VITAMIN D3 (cholecalciferol) 25 MCG PO (07:45)
[2024-12-17 07:46] VITALS: BP 117/66
--- NOTE | 2024-12-17 10:22 | PHA.VAN.FU ---
Vancomycin Assessment / Plan
- Assessment
Renal Function: Stable
WBC's are: WNL
In the past 24 hrs, patient has been: Afebrile
- Dosing Plan
Continue: vancomycin 1000 mg q24h
- Monitoring Plan
Peak Level: 12/18 0900 ( after 4th dose)
Trough Level: 12/19 0530
- Follow Up
Pharmacy will continue to follow.
Vancomycin Follow UP
- -
Patient Age: 84
Patient Sex: Female
Vancomycin Day #: 3
Indication: Skin And Soft Tissue
Requesting Provider: Gi
Pertinent Antimicrobial Allergies:
ampicillin, cephalexin, doxycycline, metronidazole, tobramycin, trimethoprim, 'a preservative'
Height / Weight:
Height 5 ft 2 in
Actual Weight 77.111 kg
Pertinent Past Medical History: BMI ~31
- Vital Signs / Lab Results
Temp Pulse Resp BP Pulse Ox
98 F 74 18 117/66 100
12/17/24 07:46 12/17/24 07:46 12/17/24 07:46 12/17/24 07:46 12/17/24 07:46
Lab Results - Hematology
12/15/24 12/16/24 12/17/24
15:07 06:29 06:39
WBC 6.5 7.5 6.5
Lab Results - Chemistry
12/15/24 12/16/24 12/17/24
15:07 06:29 05:00
BUN 49 H 37 H 40 H
Creatinine 0.8 0.7 0.8
Estimated Creat Clear 50 57 50
Albumin Cancelled 3.8
--- NOTE | 2024-12-17 11:19 | W.PN.HOSP.TC ---
Today's Communication/Plan
-
Discharge home today
Assessment / Plan
Assessment / Plan
Impression:
84-year-old female with a history of paroxysmal A-fib, hypertension, fibromyalgia, anemia, and anxiety was presenting from home with complaints of right lower extremity pain. Patient states of worsening of right lower extremity edema. Denies any
fever or chills. Denies any trauma. Associated with erythema which worsened in the right leg. Also complaining of left leg pain.
Started on IV antibiotic in form of vancomycin.
Developed A-fib with RVR.
Seen by cardiology and started on metoprolol XL 25 mg daily.
Also started a low-dose of leg
Assessment/plan:
#bilateral lower extremity erythema, edema with blistering and weeping with suspected right lower extremity cellulitis versus lymphedema
# Hx Chronic Erythromelalgia of bilateral foot
Extremity Arterial study 11/21/24 appreciated no significant stenosis
Consider as needed Lasix
Initially had pregabalin but had reaction to it, discontinued
Continue with IV vancomycin
Trend creatinine
ESR and CRP elevated now compared to prior admission
Wound care consult
Cardiology consulted, started on low-dose Lasix.
Will be discharged on oral clindamycin/probiotics.
Chest pain
Possible secondary to A-fib with RVR. Cardiology consulted.
Troponin negative
Chest pain resolved
#benign hypertension
-With recent hypotension was taken off losartan
Tolerating metoprolol XL
#paroxysmal atrial fibrillation
Patient developed A-fib with RVR
- continue Eliquis
Cardiology consult
Added Toprol-XL
#fibromyalgia
#peripheral polyneuropathy
-Pain control
#anemia
- stable
- monitor H/H
#GERD
#anxiety
#Hx basal cell carcinoma
CODE STATUS: Full code
DVT prophylaxis: Eliquis
Diet: Regular diet
Family communication: Discussed with family at bedside
Disposition: Discharge home today
Total time spent on today's encounter was 65 minutes which included time spent in counseling the patient/family regarding diagnosis and treatment plan as listed above, goals of care, and symptom management. Case was discussed with nursing staff,
specialists, and care coordinators/case management. All labs and imaging personally reviewed by me. Remainder the time spent in detailed review of previous records, lab data, imaging, and other medical provider documentation.
Anticipated Discharge: Today
Subjective/Interval History
-
Date of Service: December 17, 2024
Patient seen and examined at bedside, no acute extremity edema and pain improved, redness slightly improved, otherwise denies any chest pain or shortness of breath, no abdominal pain, no nausea, no vomiting, no diarrhea or constipation.
Objective Data
-
Labs:
Laboratory Results
12/17/24 12/17/24
05:00 06:39
WBC 6.5
Hgb 10.4 L
Hct 31.8 L
Plt Count 204
Sodium 138
Potassium 4.5
Chloride 108 H
Carbon Dioxide 27
BUN 40 H
Creatinine 0.8
Glucose 83
Calcium 9.6
Vital Signs:
Vital Signs
Temp Pulse Resp BP Pulse Ox
98 F 74 18 117/66 100
12/17/24 07:46 12/17/24 07:46 12/17/24 07:46 12/17/24 07:46 12/17/24 07:46
I&O
12/16/24 12/17/24 12/18/24
06:59 06:59 06:59
Intake Total 680 / 680 1939
Balance 680 / 680 1939
Physical Exam
-
General: Well Developed, Well Nourished, No Apparent Distress and Comfortable
HEENT: Normocephalic, Atraumatic, Moist Mucous Membranes, No Ptosis, PERRLA and Nose Appears Normal
Respiratory: Clear to Auscultation and Non Labored Respirations
Cardiac: S1/S2 and Irregular Rhythm
Breast: Deferred by me
GI: Soft, Nontender, Nondistended and Normal Bowel Sounds
Genito-urinary: No Costovertebral Tender
Musculoskeletal: No Clubbing, No Cyanosis, Edema, Right Lower Extrem and Edema, Left Lower Extrem
Skin: Rash (Right lower extremity rash/lesion), Lesions and Other (right lower extremity erythema)
Neuro: Awake, Alert, Oriented, AO x 3 and No Motor Deficits
Psych: Calm
Data Reviewed
-
Diagnostic Radiology: Image personally visualized and interpreted and Report Reviewed by me
CT Scan: Image personally visualized and interpreted and Report Reviewed by me
Ultrasound: Image personally visualized and interpreted and Report Reviewed by me
MRI: Image personally visualized and interpreted and Report Reviewed by me
Medical Tests (Nuc Med, Echo etc): Image personally visualized and interpreted and Report Reviewed by me
Labs: Labs Reviewed by me
Old Records: Reviewed
[2024-12-17 11:55] VITALS: BP 128/75
--- NOTE | 2024-12-17 13:02 | W.DCSUMMARY ---
Discharge Summary
Discharge Data
Date of Admission: 12/17/24
Date of Discharge: 12/17/24
-
Pending Results: No
Hospital Course
Hospital course
84-year-old female with a history of paroxysmal A-fib, hypertension, fibromyalgia, anemia, and anxiety was presenting from home with complaints of right lower extremity pain. Patient states of worsening of right lower extremity edema. Denies any
fever or chills. Denies any trauma. Associated with erythema which worsened in the right leg. Also complaining of left leg pain.
Started on IV antibiotic in form of vancomycin.
Developed A-fib with RVR.
Seen by cardiology and started on metoprolol XL 25 mg daily.
Also started a low-dose of lasix.
During hospitalization patient was treated from the following
#bilateral lower extremity erythema, edema with blistering and weeping with suspected right lower extremity cellulitis versus lymphedema
# Hx Chronic Erythromelalgia of bilateral foot
Extremity Arterial study 11/21/24 appreciated no significant stenosis
Consider as needed Lasix
Initially had pregabalin but had reaction to it, discontinued
Continue with IV vancomycin
Trend creatinine
ESR and CRP elevated now compared to prior admission
Wound care consult
Cardiology consulted, started on low-dose Lasix.
Will be discharged on oral clindamycin/probiotics.
Chest pain
Possible secondary to A-fib with RVR. Cardiology consulted.
Troponin negative
Chest pain resolved
#benign hypertension
-With recent hypotension was taken off losartan
Tolerating metoprolol XL
#paroxysmal atrial fibrillation
Patient developed A-fib with RVR
- continue Eliquis
Cardiology consult
Added Toprol-XL
#fibromyalgia
#peripheral polyneuropathy
-Pain control
#anemia
- stable
- monitor H/H
#GERD
#anxiety
#Hx basal cell carcinoma
CODE STATUS: Full code
DVT prophylaxis: Eliquis
Diet: Regular diet
Family communication: Discussed with family at bedside
Disposition: Discharge home today
Total time spent on today's encounter was 40 minutes which included time spent in counseling the patient/family regarding diagnosis and treatment plan as listed above, goals of care, and symptom management. Case was discussed with nursing staff,
specialists, and care coordinators/case management. All labs and imaging personally reviewed by me. Remainder the time spent in detailed review of previous records, lab data, imaging, and other medical provider documentation.
Anticipated Discharge: Today
Discharge Plan
-
Patient Disposition: Home (Routine Discharge)
Discharge Diagnosis/Procedures: Bilateral cellulitis of lower extremity.
Atrial fibrillation with rapid ventricular rate.
Hypertension.
Fibromyalgia
Diet: As tolerated
Activity: As tolerated
Blood Work: Basic metabolic panel within 1 to 2 weeks
Specialty Instructions: Weigh Daily- Call MD for wt gain/loss 3 lbs overnight/5 lbs in 1 week
Referrals:
Patria Huynh MD [Family Provider] -
Prescriptions:
New
(DME) Basal Metabolic Panel
See Rx Instructions .Route .MEDSUPPLY Qty: 1 0RF
Rx Instructions:
To be done after 1-2 weeks
Diagnosis:
CHF on LAsix
furosemide 20 mg Tablet
20 mg PO DAILY Qty: 30 0RF
metoprolol succinate 25 mg Tablet Extended Release 24 Hr
25 mg PO DAILY Qty: 30 0RF
Probiotic 15 billion cell capsule, sprinkle
1 cap PO DAILY Qty: 10 0RF
clindamycin HCl 150 mg Capsule
300 mg PO TID 5 Days Qty: 15 0RF
Continued
cholecalciferol (vitamin D3) 1,000 UNITS tablet
1,000 units PO DAILY
Eliquis 5 MG tablet
5 mg PO BID Qty: 30 0RF
acetaminophen [Tylenol Extra Strength] 500 MG tablet
1,000 mg PO Q6HPRN PRN (Reason: mild PAIN)
cyanocobalamin (vitamin B-12) 1,000 mcg Tablet
1,000 mcg PO DAILY
Estring 2 mg (7.5 mcg /24 hour) Ring
1 vag ring VAGINAL [id number]
Refresh Optive 0.5-0.9 % Drops
1 drp BOTH EYES BIDPRN PRN (Reason: dry eyes)
tramadol 50 mg tablet
50 mg PO BIDPRN PRN (Reason: moderate to severe pain)
Discharge Orders:
Discharge Patient (As Directed); Ordered 12/17/24
Ordered By: Alessia Glez
Discharge Date and Time
Print Language: HEBREW
--- NOTE | 2024-12-17 13:17 | WOUNDNOTE ---
R MEDIAL LOWER LEG
[2024-12-17] MEDS: CLEOCIN 300 MG PO (13:20)
--- NOTE | 2024-12-17 13:20 | WOUNDNOTE ---
[facility] RN note: Patient admitted with cellulitis of lower legs.
Patient lives with her and is current with [facility].
See H&P for complete history.
PMH: HTN, a fib (Eliquis), fibromyalgia, polyneuropathy, anemia, anxiety, basal cell cancer, Moh's procedure R arm 2016, L femur fracture surgery, R shoulder surgery.
Wound Location and type/assessment: Patient last seen 11/21/24 for blisters on R leg. Now admitted with dried up venous R leg ulcers, +2 LE edema. +Palpable pedal pulses, heels intact. Patient goes to wound center, saw Dr. Okeefe 12/02/24. Patient
turned self, sacrum intact.
Appetite: good.
Pressure redistribution devices in place: [employer] Accumax. Patient can reposition self in bed. She ambulates with a walker.
Plan: R leg moisturized with patient's own lotion at bedside. Applied Abd pad over dried up ulcers in case of drainage and Tubigrip size F knee high, patient tolerating. Heels off bed with pillow.
Updated nurse Aracelis, will confirm orders with hospitalist. Care plan to be updated and will follow as needed.
Recommend patient to follow up at wound care center upon discharge.
--- NOTE | 2024-12-17 14:08 | W.PN.CARDCBS ---
Today's Communication / Plan
-
Stable for discharge from my perspective
Would continue Toprol-XL 25 mg daily and Lasix 20 mg daily on discharge
Keep outpatient follow-up as scheduled with primary sales enablement consultant
Impression / Plan
-
[employer] Et[employer] Developer: Yair
Assessment:
Atrial fibrillation with rapid ventricular response
Lower extremity edema
Lower extremity cellulitis
History of paroxysmal atrial fibrillation
Chronic anticoagulation with Eliquis
Echo 11/21/24: LVEF 70-75%, mild MR, mild TR PASP 30-35mmHg
Plan:
#Atrial fibrillation with rapid ventricular response:
Heart rate better controlled with Toprol-XL 25 mg once daily; would continue this dosing on discharge
Continue Eliquis for risk reduction of cardioembolic stroke
#LE edema:
Suspect this is multifactorial in part due to lymphedema but there may also be a component of heart failure preserved ejection fraction
proBNP is greater than 3500 here
Recommend Lasix PO 20 mg daily and continue on discharge
No need to repeat echo as one was done earlier this month
Follow-up appointment with primary sales enablement consultant Dr. Mazariegos already scheduled for 12/27/2024
Progress Note - [employer] Developer
Subjective
Date of Service: December 17, 2024
No acute overnight events. Patient tells me her lower extremity edema significantly improved today and feels that her lower extremity wounds are healing. Anxious to be discharged home.
Objective
Labs:
12/17/24 06:39
12/17/24 05:00
Labs
Hgb 10.4 g/dL (12.0-16.0) L 12/17/24 06:39
Hct 31.8 % (37.0-47.0) L 12/17/24 06:39
Plt Count 204 10^3/uL (130-400) 12/17/24 06:39
Sodium 138 mmol/L (135-145) 12/17/24 05:00
Potassium 4.5 mmol/L (3.5-5.1) 12/17/24 05:00
BUN 40 mg/dl (7-17) H 12/17/24 05:00
Creatinine 0.8 mg/dL (0.6-1.0) 12/17/24 05:00
Glucose 83 mg/dl (70-99) 12/17/24 05:00
Troponins
12/16/24 12/16/24 12/17/24
13:34 21:18 05:00
Troponin I < 0.012 < 0.012 0.029 D
Vital Signs and I&O:
Vital Signs
Temp Pulse Resp BP Pulse Ox
97.3 F 97 18 128/75 95
12/17/24 11:55 12/17/24 11:55 12/17/24 11:55 12/17/24 11:55 12/17/24 11:59
Vital Signs
Temp Pulse Resp BP Pulse Ox
97.3 F 97 18 128/75 95
12/17/24 11:55 12/17/24 11:55 12/17/24 11:55 12/17/24 11:55 12/17/24 11:59
Intake & Output
12/15/24 12/16/24 12/17/24 12/18/24
06:59 06:59 06:59 06:59
Intake Total 680 / 680 1939
Balance 680 / 680 1939
Physical Exam
Physical Exam
Gen: NAD, AAOx3
HEENT: NC/AT, sclera anicteric
Neck: No JVD
CV: Irregularly irregular, NL s1/s2, no M/R/G
Lungs: CTAB on room air
Abd: S/ND
Ext: Nonpitting LE edema with areas of overlying erythema and ulceration
Skin: Warm, dry
Neuro: Non-focal
--- NOTE | 2024-12-17 14:44 | CM ---
Patient medically stable for discharge per attending. Met with patient who confirmed plan to be, home with Silvano MELGAR. Provided IMM. It was signed, reviewed and on chart. Patient stated that her spouse will be coming to pick her up.
Plan: Case management will continue to follow and assist with discharge planning. Home with Silvano MELGAR.
[2024-12-17 15:09] VITALS: BP 112/69
== END 2024-12-17 15:49 | disposition home health service (06) | DRG 603 ==
LOC: 4 EAST ACU 07:20
PROVIDERS: ADMITTING PHYSICIAN Hospitalist; ATTENDING PHYSICIAN General Practice; CONSULT PHYSICIAN Internal Medicine Cardiovascular Disease; EMERGENCY PHYSICIAN Emergency Medicine; FAMILY PHYSICIAN Family Medicine
DX: L03.115 Cellulitis of right lower limb (principal); I48.0 Paroxysmal atrial fibrillation; I11.0 Hypertensive heart disease with heart failure; I50.9 Heart failure, unspecified; M79.7 Fibromyalgia; G62.9 Polyneuropathy, unspecified; D64.9 Anemia, unspecified; K21.9 Gastro-esophageal reflux disease without esophagitis; F41.9 Anxiety disorder, unspecified; Z85.828 Personal history of other malignant neoplasm of skin; Z87.891 Personal history of nicotine dependence; Z88.0 Allergy status to penicillin; Z88.1 Allergy status to other antibiotic agents; Z88.3 Allergy status to other anti-infective agents; L03.116 Cellulitis of left lower limb; Z79.01 Long term (current) use of anticoagulants
CPT/HCPCS: 80048; 80053; 82248; 83880; 84484; 85025; 85027; 85652; 86140; 93005; 96374; 99284

== ENCOUNTER → 2024-12-26 08:17 | Outpatient (REF) | payer MEDICARE, OTHER, SELFPAY ==
[2024-12-26 10:17] LABS: Blood Urea Nitrogen 42 mg/dl (7-17); Calcium 9.9 mg/dl (8.4-10.2); Carbon Dioxide 26 mmol/L (22-30); Chloride 110 mmol/L (98-107); Glucose 81 mg/dl (70-99); Potassium 4.6 mmol/L (3.5-5.1); Sodium 142 mmol/L (135-145); eGFR > 60.00
== END ==
LOC: REG 08:17
PROVIDERS: ATTENDING PHYSICIAN General Practice; FAMILY PHYSICIAN Family Medicine; REFERRING PHYSICIAN Internal Medicine Cardiovascular Disease
DX: I10 Essential (primary) hypertension (principal)
CPT/HCPCS: 36415; 80048

== ENCOUNTER 2025-01-10 13:53 | Emergency (ER) | payer MEDICARE, OTHER, SELFPAY ==
[2025-01-10 13:58] VITALS: BP 147/81
--- NOTE | 2025-01-10 15:42 | ED.GENMED ---
History of Present Illness
General
Chief Complaint: Heart Rate Problem
Source: patient
Exam Limitations: none
Time Seen by Provider: 01/10/25 15:06
Nursing documentation reviewed up to this point in time: agreed with
History of Present Illness
History of Present Illness:
84-year-old female with past medical history of atrial fibrillation currently on Eliquis also on metoprolol also taking Lasix presenting to the emergency department today with vague symptoms over the past few days. Has been in contact with her
academic support director has a planned cardioversion in 3 days. She contacted them today with concerns that she had some intermittent shortness of breath had some mild chest achiness yesterday as well. Denies any current symptoms has had some ongoing leg
edema. Has any severe symptoms during my initial assessment she claims she would like to leave and does not want any further workup at this time.
Past History
Past History
ED Past Medical History: Arrthythmia (Atrial fibrillation) and Other (Torn rotator cuff)
ED Past Surgical History: Orthopedic (Right rotator cuff), Tonsilectomy (Tonsils and adenoid) and Other (Eye surgery)
Social History
Tobacco: Non-smoker
Alcohol: Occasional
Personal:
Living: with family
Family History
Family History: Negative Diabetes, Hypertension or CAD
Review of Systems
Review of Systems
Allergies reviewed?: Yes
All Other Systems: ROS reviewed and negative except as documented in HPI and ROS
Phy Exam
Physical Exam
Physical Exam:
GENERAL: Alert , in no apparent distress
EYE: pupils equal and reactive
NECK: Supple, no significant adenopathy.
ENT: o/p clr, mmm.
CARDIAC: Regular rate and rhythm .
LUNGS: Clear breath sounds bilaterally, no acute respiratory distress, no wheezes/rales/rhonchi
ABDOMEN: Soft, without focal tenderness, no r/g, no cvat
NEUROLOGICAL: Alert and oriented, no focal neuro deficits
SKIN: Warm and dry, skin intact.
MUSCULOSKELETAL: Lower extremity edema +1 distal to the knees bilaterally, well perfused.
PSYCH: Normal and appropriate interaction.
Course
Orders/Labs/Results
Orders:
Orders
01/10/25 13:55
EKG [Electrocardiogram (*1)] Urgent
Reason for Study: Chest Pain
EKG- Treatment ONCE
Vital Signs
Initial and Last Documented VS:
Initial Vital Signs
Temp Pulse Resp BP Pulse Ox
97.7 F 77 20 147/81 95
01/10/25 13:58 01/10/25 13:58 01/10/25 13:58 01/10/25 13:58 01/10/25 13:58
Last Documented Vital Signs
Temp Pulse Resp BP Pulse Ox
97.7 F 99 13 127/80 99
01/10/25 13:58 01/10/25 16:10 01/10/25 14:45 01/10/25 16:10 01/10/25 16:10
MDM/Problems Addressed
MDM/Problems Addressed:
83-year-old female presenting to the emergency department today with concerns of ongoing atrial fibrillation. Here heart rates between 70 and 90 other vital signs are normal. Patient in no distress. No ongoing chest pain or shortness of breath
here. Does have chronic lower extremity edema. Considering she had some degree of chest discomfort within the last 24 hours and was described some shortness of breath it was recommended to get further workup including labs troponin level and chest
x-ray. 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 It was encouraged strongly to return
immediately for any progression of symptoms. She demonstrated understanding and agreement.
*Pulse Oximetry
SaO2: 95
Oxygen Mode of Delivery: Room air
*Critical Care Note
Total Time (30-74mins, 75-104mins- exclusive of procedures): Not Applicable
ED Attending Note
-
Portions of this chart may have been created with voice recognition software.� Occasional wrong word or��sound alike� substitutions may have occurred due to the inherent limitations of voice recognition software.
Discharge Plan
Departure
Patient Disposition: Home (Routine Discharge)
Date of Disposition: 01/10/25
Time of Disposition: 15:43
Patient with high blood pressure during this ER visit?: No
Condition: Good
Covid-19: Not Applicable
Discharge Problem:
Atrial fibrillation
Instructions: Atrial Fibrillation (DC)
Prescriptions:
No Action
cholecalciferol (vitamin D3) 1,000 UNITS tablet
1,000 units PO DAILY
Eliquis 5 MG tablet
5 mg PO BID Qty: 30 0RF
acetaminophen [Tylenol Extra Strength] 500 MG tablet
1,000 mg PO Q6HPRN PRN (Reason: mild PAIN)
cyanocobalamin (vitamin B-12) 1,000 mcg Tablet
1,000 mcg PO DAILY
Estring 2 mg (7.5 mcg /24 hour) Ring
1 vag ring VAGINAL [id number]
Refresh Optive 0.5-0.9 % Drops
1 drp BOTH EYES BIDPRN PRN (Reason: dry eyes)
tramadol 50 mg tablet
50 mg PO BIDPRN PRN (Reason: moderate to severe pain)
(DME) Basal Metabolic Panel
See Rx Instructions .Route .MEDSUPPLY Qty: 1 0RF
Rx Instructions:
To be done after 1-2 weeks
Diagnosis:
CHF on LAsix
furosemide 20 mg Tablet
20 mg PO DAILY Qty: 30 0RF
metoprolol succinate 25 mg Tablet Extended Release 24 Hr
25 mg PO DAILY Qty: 30 0RF
Probiotic 15 billion cell capsule, sprinkle
1 cap PO DAILY Qty: 10 0RF
clindamycin HCl 150 mg Capsule
300 mg PO TID 5 Days Qty: 15 0RF
Referrals:
Patria Huynh MD [Family Provider, [facility]]
Activity Restrictions/Additional Instructions:
You came to the emergency department today with concerns of worsening lower extremity edema some shortness of breath and chest pain. Here you had an unchanged EKG but we are unable to get any further acute testing to clarify the possibility of
heart failure or any acute heart injury. Please immediate return for any progressive symptoms or ongoing symptoms.
Interventions
Interventions:
*Risk Screen - Suicide Last Done: 01/10/25 13:58
*Neglect/Abuse Screening Last Done: 01/10/25 13:58
*Nursing Disposition Last Done: 01/10/25 16:10
Discharge Date and Time
Discharge Date/Time: 01/10/25 16:18
Print Language: GERMAN
[2025-01-10 16:10] VITALS: BP 127/80
== END 2025-01-10 16:18 | disposition home or self-care (01) ==
LOC: EMR 13:53
PROVIDERS: EMERGENCY PHYSICIAN Student in an Organized Health Care Education/Training Program; FAMILY PHYSICIAN Family Medicine
DX: I48.91 Unspecified atrial fibrillation (principal); I50.9 Heart failure, unspecified; Z79.01 Long term (current) use of anticoagulants
CPT/HCPCS: 99283; 93005

== ENCOUNTER 2025-01-13 09:50 | Day surgery (SDC) | payer MEDICARE, OTHER, SELFPAY ==
[2025-01-13 11:06] VITALS: BMI 31.7
--- NOTE | 2025-01-13 21:01 | ITS.CL.CARDI ---
Avionics Integration Engineer - Cardioversion
Cardioversion
Procedure Report:
Date of Procedure: 01/13/25
Procedure: Cardioversion
Indication: Symptomatic atrial fibrillation
Performing Physician: Vivian Molina DO [facility]
Technique: The patient was brought to the holding area. Signed informed consent was obtained. A time out was called and performed. The patient was anesthetized by the anesthesia service. Anticoagulation status was reviewed and appropriate. R2 pads
were placed anteriorly and posteriorly. A 200 J synchronized biphasic shock briefly restored normal sinus rhythm. A second synchronized biphasic shock at 300J converted to sinus rhythm/sinus bradycardia with transient paroxysms of atrial
tachycardia. There were no complications.
Conclusion: Uncomplicated cardioversion from atrial fibrillation to sinus rhythm.
Recommendation: Routine post cardioversion care. 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 Follow-up as scheduled with her usual slurry tank operator, Dr. Benjamin Mazariegos
== END 2025-01-13 12:31 | disposition home or self-care (01) ==
LOC: CATH 09:50
PROVIDERS: ATTENDING PHYSICIAN Internal Medicine Cardiovascular Disease; FAMILY PHYSICIAN Family Medicine
DX: I48.0 Paroxysmal atrial fibrillation (principal); R06.09 Other forms of dyspnea; R07.9 Chest pain, unspecified; I10 Essential (primary) hypertension; I34.1 Nonrheumatic mitral (valve) prolapse; Z87.891 Personal history of nicotine dependence; Z79.01 Long term (current) use of anticoagulants
CPT/HCPCS: 92960; 93005

== ENCOUNTER → 2025-05-13 06:43 | Outpatient (REF) | payer MEDICARE, OTHER, SELFPAY ==
[2025-05-13 08:58] LABS: Hematocrit 37.2 % (37.0-47.0); Hemoglobin 12.2 g/dL (12.0-16.0); Mean Corp Hgb Conc. 32.8 g/dL (33.0-37.0); Mean Corpuscular Volume 86.9 fL (81.0-99.0); Nucleated Red Blood Cells % 0 %; Platelet Count 196 10^3/uL (130-400); Red Cell Dist. Width 18.5 % (11.5-14.5)
[2025-05-13 09:27] LABS: Glycohemoglobin (HgbA1c) 5.9 % (4.0-5.6)
[2025-05-13 09:29] LABS: ALT (SGPT) 24 U/L (0-35); AST (SGOT) 26 U/L (14-36); Albumin 4.8 g/dl (3.5-5.0); Alkaline Phosphatase 89 U/L (38-126); Blood Urea Nitrogen 33 mg/dl (7-17); Calcium 10.1 mg/dl (8.4-10.2); Carbon Dioxide 29 mmol/L (22-30); Chloride 101 mmol/L (98-107); Glucose 89 mg/dl (70-99); Potassium 4.0 mmol/L (3.5-5.1); Sodium 136 mmol/L (135-145); Total Protein 8.2 g/dl (6.3-8.2); Very Low Density Lipoprotein 14 mg/dl (0-30); eGFR > 60.00
[2025-05-13 09:46] LABS: HDL Cholesterol 124 mg/dl; LDL Cholesterol, Calculated 117 mg/dl
[2025-05-13 09:59] LABS: TSH 2.08 uIU/ml (0.47-4.68)
== END ==
LOC: REG 06:43
PROVIDERS: ATTENDING PHYSICIAN Family Medicine
DX: D64.9 Anemia, unspecified (principal); I10 Essential (primary) hypertension; E78.2 Mixed hyperlipidemia; R73.09 Other abnormal glucose
CPT/HCPCS: 36415; 80053; 80061; 83036; 84443; 85025